=== PATIENT | female | born 1970 | race Caucasian/White ===

== ENCOUNTER 2019-01-20 09:34 | Outpatient (CLI) | payer OTHER, SELFPAY ==
[2019-01-20 13:20] LABS: Hemoglobin A1C 5.6 % (4.5-6.2)
== END 2019-01-20 09:54 ==
PROVIDERS: PCP Internal Medicine; Visit Provider Nurse Practitioner
DX: Z13.1 Encounter for screening for diabetes mellitus (principal)
CPT/HCPCS: 36415; 83036

== ENCOUNTER 2019-02-23 02:19 | Outpatient (CLI) | payer OTHER, SELFPAY ==
--- NOTE | 2019-02-23 10:10 | DI.MAMMO_ITS ---
EXAM: MG MAMMO SCREENING CLINICAL HISTORY: screening Z12.39 TECHNIQUE: Mammograms were interpreted according to the usual protocol including computer analysis w [employer] CAD system, tomosynthesis and C-view imaging. COMPARISON: No exams were available for comparison FINDINGS: The breasts are composed of scattered areas of fibroglandular density, breast density category B. Th ere are no suspicious masses or suspicious microcalcifications. There has been no significant interva l change when compared with the prior images. IMPRESSION: Category 1, negative mammogram. Yearly screening mammography is recommended. BI-RADS Cat 1 - Negative Breast Density - Category B - Scattered areas of fibroglandular density
== END 2019-02-23 02:39 ==
PROVIDERS: PCP Nurse Practitioner; Visit Provider Nurse Practitioner
DX: Z12.31 Encounter for screening mammogram for malignant neoplasm of breast (principal)
CPT/HCPCS: 77063; 77067

== ENCOUNTER 2021-02-15 03:33 | Outpatient (CLI) | payer BC, SELFPAY ==
[2021-02-15 10:13] LABS: Hemoglobin A1C 5.7 % (<5.7)
[2021-02-15 11:18] LABS: Calculated LDL 123 mg/dL (<100); Cholesterol 200 mg/dL (<200); HDL Cholesterol 60 mg/dL (40-60); Triglyceride 88 mg/dL (<150)
== END 2021-02-15 03:34 | disposition home or self-care (01) ==
LOC: LBO 03:33
PROVIDERS: PCP Nurse Practitioner; Visit Provider Nurse Practitioner
DX: Z00.00 Encounter for general adult medical examination without abnormal findings (principal)
CPT/HCPCS: 36415; 80061; 83036

== ENCOUNTER 2021-02-21 15:55 | Outpatient (REF) | payer BC, SELFPAY ==
--- NOTE | 2021-02-21 13:30 | PAPFT_PTH ---
PATIENT: Vania Palma LOC: [facility] U#:[id number] AGE/SX: 50/F ROOM: RE02/21/[address]: Monica Dumont, PhD [employer] : 1970 BED: DIS: 02/21/2021 SPEC #: [id number] RECD: 02/21/21 18:06 STATUS: RALPH REQ #: [id number] ARCHANA: 02/21/21 13:[address]: Monica Dumont DEPT: [facility] Cytology RECD BY: Deborah Fregoso Tissues: 1 - CX/ENDOCX FOR PAP SMEARS Procedures: PAP THIN PREP/UVM Screening HPV DNA PROBE Comments: [id number]
== END 2021-02-21 15:56 | disposition home or self-care (01) ==
LOC: LBN 15:55
PROVIDERS: PCP Nurse Practitioner; Visit Provider Nurse Practitioner
DX: Z12.4 Encounter for screening for malignant neoplasm of cervix (principal); Z11.51 Encounter for screening for human papillomavirus (HPV)
CPT/HCPCS: 88142; 87624

== ENCOUNTER → 2023-08-23 01:10 | Outpatient (CLI) | payer OTHER, SELFPAY ==
--- NOTE | 2023-08-23 12:17 | DI.MAMMO_ITS ---
Exam(s) MAMMO SCREENING EXAM: MAMMO SCREENING CLINICAL HISTORY: screening,Z12.39 TECHNIQUE: Mammograms were interpreted according to the usual protocol including computer analysis w [employer] CAD system, tomosynthesis and C-view imaging. COMPARISON: 2019 FINDINGS: The breasts are composed of scattered fibroglandular densities, Breast Density category B. No suspicious masses or suspicious microcalcifications are seen. No skin thickening or abnormal axillary lymph nodes are seen. There has been no significant change from prior exams. IMPRESSION: BI-RADS Category 1, Negative mammogram Yearly screening mammography is recommended. Breast Density - Category B, scattered fibroglandular densities. A negative radiographic report should not delay biopsy if a dominant or clinically suspicious mass is present. Up to ten percent of cancers are not identified on mammography. A negative report may reinforce clinical impression. Adenosis and dense breasts may obscure an underlying neoplasm. False positive reports average 6 to 10%. Patient will receive a letter notifying them of these results.
== END ==
PROVIDERS: PCP Nurse Practitioner Family; Visit Provider Family Medicine
DX: Z12.31 Encounter for screening mammogram for malignant neoplasm of breast (principal)
CPT/HCPCS: 77063; 77067

== ENCOUNTER 2023-10-02 06:59 | Day surgery (SDC) | payer OTHER, SELFPAY ==
[2023-10-02 07:05] VITALS: BP 138/82; PULSE 81; RESP 18; TEMP 36.4; O2SAT 99
[2023-10-02] MEDS: Lactated Ringers 1,000 ML 80 ML IV (07:28)
--- NOTE | 2023-10-02 08:24 | W.COLOREPORT ---
Date of service: 10/02/23 Time of Service: 08:24 Colonoscopy Report Procedure Description: PROCEDURES PERFORMED: 1. Colonoscopy with hot snare polypectomy 2 submucosal injection/tattoo. PREOPERATIVE DIAGNOSIS: Screening colonoscopy POSTOPERATIVE DIAGNOSIS: Unresectable colon polyp, pandiverticulosis SURGEON: Mariama Gregory MD INDICATION for procedure: The patient is a 52-year-old woman who is never had a screening colonoscopy. There is family history of colorectal polyps in her father. She has no symptoms. FINDINGS: In the ascending colon, a large, 3 cm plus very sessile and flat polyp was found. It may even be a tumor. It is not resectable as it encompasses at least one third of the colon wall. I performed submucosal injection/tattoo about 1 cm distal to the polyp edge. No other polyps were found. There are pandiverticular changes throughout the entire colon. SURVEILLANCE interval/FOLLOW-UP: Will need a right hemicolectomy for definitive management SPECIMENS: yes EBL: Minimal COMPLICATIONS: None QUALITY of prep: Excellent Procedure in detail: The patient gave written consent and was in agreement with the indications, the potential risks as well as the benefits of the procedure. They were taken to the endoscopy suite and laid in the left lateral decubitus position. A timeout was performed and anesthesia was administered which was tolerated well. I started the procedure. Digital rectal and visual examination was performed and grossly within normal limits. A well-lubricated flexible colonoscope was then introduced and passed without any notable difficulty all the way to the cecum identified by the ileocecal valve and the appendiceal orifice. The scope was then slowly withdrawn with the above-noted findings. The patient tolerated the procedure well and was taken to the PACU in hemodynamically stable condition.
--- NOTE | 2023-10-02 08:35 | ANES.PREOP_ITS ---
General Info Date of Service Date Performed: 10/02/23 Height: 5 ft 8 in Weight: 1089 kg Body Mass Index (BMI): 365.0 Surgical Procedure: Operation Date: 10/02/23 08:35 Proposed Procedure Side Surgeon p Colonoscopy John Gregory MD Actual Procedure Side Surgeon p Colonoscopy Not Applicable John Gregory MD Meds Allergies and Home Medications Allergies Allergy/AdvReac Type Severity Reaction Status Date / Time No Known Allergies Allergy Verified 10/02/23 07:21 Home Medication Medication Instructions Recorded lisinopril 10 mg tablet 10 mg PO DAILY #90 tabs 07/24/23 bisacodyl 5 mg tablet,delayed 5 mg PO ONCE #4 tabs 09/19/23 release (Dulcolax (bisacodyl)) polyethylene glycol 3350 17 17 g PO ONCE #238 grams 09/19/23 gram/dose oral powder Current Visit Medications: Current Medications Generic Name Dose Route Start Last Admin Trade Name Freq PRN Reason Stop Dose Admin Ringer's Solution 1,000 mls @ 80 mls/hr 10/02/23 06:00 10/02/23 07:28 IV 10/31/23 23:59 80 mls/hr INFUSION ROSALIE Administration IV Miscellaneous Supplies 1 each 10/02/23 06:00 Iv Access IV 10/31/23 23:59 DIRECTED ROSALIE Sodium Chloride 0 ml 10/02/23 06:00 Normal Saline Flush 10 Ml Syr IV 10/31/23 23:59 PRN PRN Sodium Chloride 0 ml 10/02/23 06:00 Normal Saline 10 Ml Vial IJ 10/31/23 23:59 DIRECTED PRN Sterile Water 0 ml 10/02/23 06:00 Water,Injection,Sterile 10 Ml Vial IJ 10/31/23 23:59 DIRECTED PRN PFSH Active Problems Active Problems: Problem Status Onset Code Encounter for annual physical exam Z00.00 Bilateral wrist pain M25.531, M25.532 Prediabetes R73.03 Obesity E66.9 Hypertension I10 Eczema of hand L30.9 Medical History Medical History Hx of skin cancer, basal cell Tobacco Smoking/Tobacco Use Status: Never Second hand exposure: Yes Alcohol Alcohol Intake: current Alcohol intake frequency: a few times a month Alcohol type: wine Substance Use Substance use: Never Substance use type: does not use Vital Signs and Lab Results Vital Signs Most Recent Vital Signs in EMR: Most Recent Vital Signs Temp Pulse Resp BP Pulse Ox 36.4 C L 81 18 138/82 99 10/02/23 07:05 10/02/23 07:05 10/02/23 07:05 10/02/23 07:05 10/02/23 07:05 Point of Care Results Point of Care Results: POC- Test(urine) Negative 10/02/23 07:26 Lab Results Blood Type / Crossmatch: No Data to Display Complete Blood Count: No Data to Display Complete Metabolic Panel: No Data to Display Liver Function Panel: 2 No Data to Display Coagulation Panel: No Data to Display Cardiac Panel: No Data to Display Arterial Blood Gas: No Data to Display Venous Blood Gas: No Data to Display Pancreas Panel: No Data to Display Thyroid Panel: No Data to Display Infectious Disease: No Data to Display Blood Cultures: No Data to Display Toxicology Panel: No Data to Display Panel: No Data to Display Anesthesia Assessment and Plan Anesthesia History Personal History: Unknown Anesthesia History Family History: No Family History of Anesthesia Complications Exercise Tolerance Exercise Tolerance: Metabolic Equivalents>4 Pertinent Negatives Pertinent Negatives: No Symptoms of GERD, No Major Cardiovascular Symptoms or Complaints and No Major Pulmonary Symptoms or Complaints Cardiac & Pulmonary Exam Cardiac Exam: Normal S1/S2 Heart Sounds Pulmonary Exam: Clear Bilateral Breath Sounds Implantable Cardiac Device Does patient have a Pacemaker or an ICD?: No Airway Exam Known Difficult Airway: No Mallampati Class: 2 Mouth Opening: Normal (> 3cm) Thyromental Distance: Greater than 3 cm Neck Range of Motion: Full ROM Neck Circumference: Thick Teeth Condition: Normal Dentition Airway Comments: TMJ ASA Classification ASA Score: ASA 2 Emergency Case?: No NPO Status NPO Status: NPO Clears >2 hours, Solids >8 hours Status Status: Negative HCG Anesthesia Plan Resuscitation Status: Full Code Anesthesia Technique: General Anesthesia Airway Planned: Natural Airway Monitors Used: Standard Monitors Preoperative Comments:: Weight to be corrected, 108.9kg
[2023-10-02 08:38] VITALS: BMI 365.0
--- NOTE | 2023-10-02 08:58 | BOWEL_PTH ---
PATIENT: Vania Palma LOC: [facility] U#:[id number] AGE/SX: 52/F ROOM: RE10/02/[address]: John Gregory : 1970 BED: DIS: 10/02/2023 SPEC #: [id number] RECD: 10/02/23 12:45 STATUS: RALPH RE #: [id number] ARCHANA: 10/02/23 08:[address]: John Gregory DEPT: Surgical Specimen RECD BY: Deborah Fregoso ENTERED: 10/02/23 12:46 SP TYPE: Bowel OTHR DR: Jacklyn Shore MD, DC Tissues: 1 - BIOPSY BOWEL Procedures: GROSS AND MICRO LEVEL 4 Comments: [id number]
[2023-10-02] MEDS: Endoscopic Tattoo 5 ML SYR IJ (09:04)
[2023-10-02 09:11] VITALS: BP 119/74; PULSE 68; RESP 18; TEMP 36; O2SAT 98
--- NOTE | 2023-10-02 09:16 | W.ANESPOSTOP ---
Postoperative Evaluation Date, Time and Location Date Performed: 10/02/23 Time Performed: 09:16 Patient Location: Day Surgery Unit Vital Signs Most Recent Imported Vital Signs: Most Recent Vital Signs Temp Pulse Resp BP Pulse Ox 36.0 C L 68 18 119/74 98 10/02/23 09:11 10/02/23 09:11 10/02/23 09:11 10/02/23 09:11 10/02/23 09:11 Pain Score Most Recent Pain Score: Most Recent Pain Score Pain Level 0 10/02/23 09:11 Assessment Mental Status: Arousable with meaningful communication Airway and Respiratory Function: Patent airway with normal (patient baseline) respiratory exam Cardiovascular Function: Hemodynamically Stable Hydration Status: Adequately Hydrated Nausea & Vomiting: No Nausea or Vomiting Pain: Pt. Denies Any Pain Peripheral Nerve Block: Patient did not receive a nerve block
--- NOTE | 2023-10-02 09:20 | W.PM.DSUDISC ---
Date of service: 10/02/23 Time of Service: 09:20 Discharge Plan Disposition Patient Disposition: Home Condition: Good Discharge Details Attending Provider: John Gregory Primary Care Provider: Jacklyn Shore Home Meds and New Rx's Prescriptions: No Action bisacodyl [Dulcolax (bisacodyl)] 5 mg tablet,delayed release (DR/EC) 5 mg PO ONCE Qty: 4 0RF Rx Instructions: Take per colonoscopy instructions provided by ordering providers office polyethylene glycol 3350 17 gram/dose powder 17 g PO ONCE Qty: 238 0RF Rx Instructions: Take per colonoscopy instructions provided by ordering providers office lisinopril 10 mg tablet 10 mg PO DAILY Qty: 90 3RF Discharge Instructions Additional Instructions: FINDINGS: A large polyp was found in your ascending colon. This may even be an early colon cancer. It is hard to know without removing it. It needs to be removed with the surgery called a right hemicolectomy. You need to follow-up in the office to discuss this further and plan for it. Activity:: Activity as Tolerated Diet:: As Tolerated
[2023-10-02 09:40] VITALS: BP 128/93; PULSE 57; RESP 17; TEMP 36; O2SAT 100
== END 2023-10-02 10:18 | disposition home or self-care (01) ==
PROVIDERS: PCP Family Medicine; Visit Provider Student in an Organized Health Care Education/Training Program
PROC: 0DJD8ZZ Inspection of Lower Intestinal Tract, Via Natural or Artificial Opening Endoscopic (ICD-10-PCS; CPT 45378; principal; 2023-10-02 08:30)
DX: Z12.11 Encounter for screening for malignant neoplasm of colon (principal); I10 Essential (primary) hypertension; Z80.0 Family history of malignant neoplasm of digestive organs; K57.90 Diverticulosis of intestine, part unspecified, without perforation or abscess without bleeding; D37.4 Neoplasm of uncertain behavior of colon
CPT/HCPCS: 45385; 45381; 00123; 81025; 88305; J2001; J2704

== ENCOUNTER 2023-10-15 09:19 | Outpatient (CLI) | payer OTHER, SELFPAY ==
[2023-10-15 12:27] LABS: ALT 28 U/L (14-59); AST 19 U/L (15-37); Albumin 3.7 g/dL (3.4-5.0); Alkaline Phosphatase 71 U/L (46-116); Anion Gap 9.7 mmol/L (3-11); BUN 12 mg/dL (7-18); Bilirubin, Total 0.44 mg/dL (0.2-1.0); CO2 27.3 mmol/L (21.0-32.0); CREATININE 0.9 mg/dL (0.55-1.02); Calcium 9.4 mg/dL (8.5-10.1); Calculated LDL 90 mg/dL (<100); Chloride 104 mmol/L (98-107); Cholesterol 163 mg/dL (<200); Estimated GFR 76.92 (mL/min/1.73m2); Glucose 102 mg/dL (74-106); HDL Cholesterol 57 mg/dL (40-60); Potassium 4.1 mmol/L (3.5-5.1); Sodium 141 mmol/L (136-145); Total Protein 7.2 g/dL (6.4-8.2); Triglyceride 84 mg/dL (<150)
== END 2023-10-15 09:20 | disposition home or self-care (01) ==
LOC: LOS 09:19
PROVIDERS: PCP Family Medicine; Visit Provider Family Medicine
DX: I10 Essential (primary) hypertension (principal); Z00.00 Encounter for general adult medical examination without abnormal findings; D12.6 Benign neoplasm of colon, unspecified
CPT/HCPCS: 36415; 80053; 80061

== ENCOUNTER 2023-10-16 12:56 | Outpatient (CLI) | payer OTHER, SELFPAY ==
[2023-10-16 14:16] LABS: Abs Immature Grans 0.02 10^3/uL (0.0-0.06); Absolute Basophil Count 0.05 10^3/uL (0.0-0.2); Absolute Eosinophil Count 0.11 10^3/uL (0.0-0.7); Absolute Lymphocyte Count 1.72 10^3/uL (1.2-3.4); Absolute Monocyte Count 0.56 10^3/uL (0.1-0.8); Absolute Neutrophil Count 5.65 10^3/uL (1.2-6.7); Basophils % 0.6 %; Eosinophils % 1.4 %; HCT 42.6 % (36.0-46.0); HGB 14.1 g/dL (11.2-15.7); Immature Grans % 0.2 %; Lymphocytes % 21.2 %; MCH 28.1 pg (27.0-33.0); MCHC 33.1 % (32.0-36.0); MCV 85 fL (80-95); MPV 11.9 fL (8.0-11.0); Monocytes % 6.9 %; Neutrophils % 69.7 %; Platelet Count 282 10^3/uL (130-400); RBC 5.02 10^6/uL (3.93-5.22); RDW 13.1 % (11.7-14.6); WBC 8.11 10^3/uL (4.4-10.8)
[2023-10-16 23:02] LABS: CEA 1.2 ng/mL (See Note)
== END 2023-10-16 12:57 | disposition home or self-care (01) ==
LOC: LBO 12:56
PROVIDERS: PCP Family Medicine; Visit Provider Family Medicine
DX: D12.6 Benign neoplasm of colon, unspecified (principal)
CPT/HCPCS: 36415; 82378; 85025

== ENCOUNTER 2024-03-17 12:00 | Day surgery (SDC) | payer OTHER, SELFPAY ==
[2024-03-17 12:12] VITALS: BP 139/86; PULSE 88; RESP 16; TEMP 36.4; O2SAT 100
[2024-03-17] MEDS: Celecoxib 200 MG CAP 400 MG PO (12:22)
[2024-03-17] MEDS: Acetaminophen 500 MG TAB 1000 MG PO (12:22)
[2024-03-17] MEDS: Cephalexin 500 MG CAP 1000 MG PO (12:25)
[2024-03-17] MEDS: Sodium Bicarbonate 50 MEQ/50 ML VIAL (13:53)
[2024-03-17] MEDS: Lidocaine 1% Pres-Free W/EPI 1/200,000 10 ML VIAL (13:53)
--- NOTE | 2024-03-17 14:02 | ROE_ITS ---
Operative Note Operative Note PRE-OP DIAGNOSIS: Left Carpal Tunnel Syndrome POST-OP DIAGNOSIS: same PROCEDURE: Left Endoscopic Carpal Tunnel Release SURGEON: Rocky Howard ANESTHESIA TYPE: Local By Surgeon Refer to Anesthesia Record ESTIMATED BLOOD LOSS: 0 PATHOLOGY: none sent TOURNIQUET TIME: 5 COMPLICATIONS: None Patient was transported to: same day Patient's condition: stable Indications: I have seen Vania in clinic for symptoms of carpal tunnel syndrome. The numbness, tingling, and pain limited function. Clinical exam findings confirmed the diagnosis of carpal tunnel syndrome. Nonoperative measures such as bracing, time, activity modifications had been tried but disability and pain persisted. I discussed carpal tunnel release with the patient. I reviewed the risks of the procedure to include, but not limited to, bleeding, infection, pain, stiffness, incomplete release, damage to nerves or vessels, persistent numbness, recurrence. Despite these risks, the patient elected to proceed. Findings: There was tightened carpal tunnel and a prominent palmaris brevis. The carpal tunnel was dilated and released successfully with the endoscopic with increased space within the tunnel. The antebrachial fascia was released proximally freeing the median nerve at the wrist. Procedure Description: Vania was greeted in the preoperative holding area where the correct side was identified and marked. The consent was reviewed with the patient and signed. The history and physical was updated. All questions were answered. She was taken back to the operating room. The patient was placed into the supine position on the operating room table with the left arm on an arm board. A nonsterile tourniquet was placed high onto the arm. All bony prominences were well padded. Prophylactic antibiotics in the form of Cefazolin were administered. The left arm was then prepped with Chloraprep and draped in a standard fashion with stockinette and extremity drape. A timeout to confirm correct identity, side and site, procedure, allergies, anesthesia, and medical concerns was performed. The surgical site was marked in the volar wrist creases in line with the radial border of the fourth ray. This area was anesthetized with approximately 1% Lidocaine with epinephrine, buffered with sodium bicarbonate. This local anesthetic was also administered within the carpal tunnel and superficial to the transverse carpal ligament in addition to the volar forearm proximal to the inci dru site. The limb was then exsanguinated with an Esmarch. The skin was incised with a 15 blade, approximately 1cm. The skin only was cut and the deeper tissue was dissected bluntly with a tenotomy scissor, avoiding passing nerve and venous structures. There was muscle belly encountered which appeared to be prominent palmaris brevis. This was dissected away. The fascia was penetrated and opened bluntly. A two-prong skin hook was placed under this proximal fascial edge. A series of hamate finders were used to identify and dilate the carpal tunnel. Synovial elevator was used to free synovial attachments to the underside of the transverse carpal ligament. My thumb was kept in the palm to prudence the distal extent of the carpal tunnel and correctly position the hand. The Microaire endoscope was inserted without difficulty and without resistance. Excellent visualization showed horizontally running fibers of the transverse carpal ligament (TCL). The distal extent of the TCL was vi sualized and the end of the scope palpated with the thumb. The blade was elevated and withdrawn from distal to proximal. The TCL was split into two flaps. The endoscope was reinserted to confirm complete release and any remnant ligament was incised. The scope was withdrawn and the proximal aspect of the carpal tunnel was grossly inspected and appeared release with the median nerve visible. The antebrachial fascia at the level of the wrist was then freed from the overlying skin and then the underlying median nerve with blunt dissection. This was transected longitudinally for about 3cm proximal to the wrist incision. The wound was then irrigated with easy flow of irrigant distally and proximally. The incision was closed with a single 4-0 Nylon suture. The wound was dressed with Xeroform, Gauze, Kerlix and Carlos. The tourniquet was deflated with the initial dressing and held with some pressure. Blood flow returned easily to all digits with capillary refill less than 2 seconds. The patient tolerated the procedure well and was returned to the Same Day Surgery area in a stable condition suffering no known complication. Date of Procedure: 03/17/24
--- NOTE | 2024-03-17 14:04 | W.PM.DSUDISC ---
Date of service: 03/17/24 Discharge Plan Disposition Patient Disposition: Home Condition: Good Discharge Details Reason For Visit: Left carpal tunnel syndrome Attending Provider: Rocky Howard Primary Care Provider: Jacklyn Shore Home Meds and New Rx's Prescriptions: New acetaminophen 500 mg tablet 500 mg PO Q6H PRN (Reason: pain) Qty: 60 2RF hydrocodone-acetaminophen 5-325 mg tablet 1 tab PO Q6H PRN (Reason: severe pain) Qty: 4 0RF Rx Instructions: Take one tablet up to every 6 hours as needed for severe postoperative pain ibuprofen 600 mg tablet 600 mg PO TID PRN (Reason: pain) Qty: 60 0RF Discharge Instructions Stand Alone Forms: Anita Pablo Tunnel Release Activity:: Elevate Remove Dressings/Wound Care:: 48 hours Shower/Bathe:: 48 hours Diet:: As Tolerated Discharge Orders Discharge Orders: Discharge Order (Routine); Ordered 03/17/24 Ordered By: Mindy Vu
[2024-03-17 14:06] VITALS: BP 130/88; PULSE 73; RESP 18; TEMP 36.1; O2SAT 98
== END 2024-03-17 14:16 | disposition home or self-care (01) ==
PROVIDERS: PCP Family Medicine; Visit Provider Student in an Organized Health Care Education/Training Program
PROC: 01N54ZZ Release Median Nerve, Percutaneous Endoscopic Approach (ICD-10-PCS; CPT 29848; principal; 2024-03-17 14:45)
DX: G56.02 Carpal tunnel syndrome, left upper limb (principal)
CPT/HCPCS: 29848; J2004

== ENCOUNTER 2024-03-26 06:17 | Day surgery (SDC) | payer OTHER, SELFPAY ==
[2024-03-26 06:26] VITALS: BP 137/72; PULSE 80; RESP 16; TEMP 36.6; O2SAT 100
[2024-03-26] MEDS: Celecoxib 200 MG CAP 400 MG PO (06:39)
[2024-03-26] MEDS: Acetaminophen 500 MG TAB 1000 MG PO (06:39)
[2024-03-26] MEDS: Cephalexin 500 MG CAP 1000 MG PO (06:40)
--- NOTE | 2024-03-26 07:09 | W.PM.DSUDISC ---
Date of service: 03/26/24 Discharge Plan Disposition Patient Disposition: Home Condition: Good Discharge Details Reason For Visit: R ECTR Attending Provider: Rocky Howard Primary Care Provider: Jacklyn Shore Home Meds and New Rx's Prescriptions: New hydrocodone-acetaminophen 5-325 mg tablet 1 tab PO Q6H PRN (Reason: pain) Qty: 4 0RF Discontinued acetaminophen 500 mg tablet 500 mg PO Q6H PRN (Reason: pain) Qty: 60 2RF hydrocodone-acetaminophen 5-325 mg tablet 1 tab PO Q6H PRN (Reason: severe pain) Qty: 4 0RF Rx Instructions: Take one tablet up to every 6 hours as needed for severe postoperative pain ibuprofen 600 mg tablet 600 mg PO TID PRN (Reason: pain) Qty: 60 0RF Discharge Instructions Stand Alone Forms: Anita Pablo Tunnel Malachi, Miguel Hook (DSU) Activity:: Activity as Tolerated Remove Dressings/Wound Care:: 48 hours Shower/Bathe:: 48 hours Diet:: As Tolerated Discharge Orders Discharge Orders: Discharge Order (Routine); Ordered 03/26/24 Ordered By: Ruddy Hicks DS: Diagnosis Discharge Diagnosis (1) Bilateral carpal tunnel syndrome: Status: Acute
[2024-03-26] MEDS: Lidocaine 1% Multi-Dose W/EPI 1/100,000 50 ML VIAL (07:33)
[2024-03-26] MEDS: Sodium Bicarbonate 50 MEQ/50 ML VIAL (07:33)
[2024-03-26 07:57] VITALS: BP 126/88; PULSE 70; RESP 16; TEMP 36.1; O2SAT 100
--- NOTE | 2024-03-26 08:04 | W.PM.OP ---
Operative Note Operative Note PRE-OP DIAGNOSIS: Right Carpal Tunnel Syndrome POST-OP DIAGNOSIS: same PROCEDURE: Right Endoscopic Carpal Tunnel Release SURGEON: Rocky Howard ANESTHESIA TYPE: Local By Surgeon Refer to Anesthesia Record ESTIMATED BLOOD LOSS: 0 PATHOLOGY: none sent TOURNIQUET TIME: 10 COMPLICATIONS: None Patient was transported to: same day Patient's condition: stable Indications: I have seen Vania in clinic for symptoms of carpal tunnel syndrome. The numbness, tingling, and pain limited function. Clinical exam findings [with nerve conduction tests ]confirmed the diagnosis of carpal tunnel syndrome. Nonoperative measures such as bracing, time, activity modifications had been tried but disability and pain persisted. I discussed carpal tunnel release with the patient. I reviewed the risks of the procedure to include, but not limited to, bleeding, infection, pain, stiffness, incomplete release, damage to nerves or vessels, persistent numbness, recurrence. Despite these risks, the patient elected to proceed. Findings: There was a quite large pulmonary's brevis which obstructed the view of the volar fascia and the entrance into the carpal tunnel. These fibers were dissected which allowed entrance into the carpal tunnel. There was tightened carpal tunnel. This was dilated and released successfully with the endoscopic with increased space within the tunnel. Procedure Description: Vania was greeted in the preoperative holding area where the correct side was identified and marked. The consent was reviewed with the patient and signed. The history and physical was updated. All questions were answered. She was taken back to the operating room. The patient was placed into the supine position on the operating room table with the right arm on an arm board. A nonsterile tourniquet was placed high onto the arm. All bony prominences were well padded. Prophylactic antibiotics in the form of cephalexin were administered. The right arm was then prepped with Chloraprep and draped in a standard fashion with stockinette and extremity drape. A timeout to confirm correct identity, side and site, procedure, allergies, anesthesia, and medical concerns was performed. The surgical site was marked in the volar wrist creases in line with the radial border of the fourth ray. This area was anesthetized with approximately 1% Lidocaine with epinephrine, buffered with sodium bicarbonate. Once the anesthetic had set up, the limb was then exsanguinated with an Esmarch. The skin was incised with a 15 blade, approximately 1cm. The skin only was cut and the deeper tissue was dissected bluntly with a tenotomy scissor, avoiding passing nerve and venous structures. There was a thin fascial layer overlying a significant sized muscle belly, likely Mccall's brevis. The fascia was penetrated and opened bluntly. The muscle belly was quite large and obstructing the view of the deeper structures. It was dissected in line with its fibers and then retracted out of the way to allow entrance into the carpal tunnel. Then, a two-prong skin hook was placed under this proximal fascial edge. A series of hamate finders were used to identify and dilate the carpal tunnel. Synovial elevator was used to free synovial attachments to the underside of the transverse carpal ligament. My thumb was kept in the palm to prudence the distal extent of the carpal tunnel and correctly position the hand. The Microaire endoscope was inserted without difficulty and without resistance. Excellent visualization showed horizontally running fibers of the transverse carpal ligament (TCL). The distal extent of the TCL was visualized and the end of the scope palpated with the thumb. The blade was elevated and withdrawn from distal to proximal. The TCL was split into two flaps. The endoscope was reinserted to confirm complete release and any remnant ligament was incised. The scope was withdrawn and the proximal aspect of the carpal tunnel was grossly inspected which showed appropriate separation. The wound was then irrigated with easy flow of irrigant distally and proximally. The incision was closed with a single 4-0 Nylon suture. The wound was dressed with Xeroform, Gauze, Kerlix and Carlos. The tourniquet was deflated with the initial dressing and held with some pressure. Blood flow returned easily to all digits with capillary refill less than 2 seconds. The suture from the left hand was then removed. The patient tolerated the procedure well and was returned to the Same Day Surgery area in a stable condition suffering no known complication. Date of Procedure: 03/26/24
== END 2024-03-26 08:11 | disposition home or self-care (01) ==
PROVIDERS: PCP Family Medicine; Visit Provider Student in an Organized Health Care Education/Training Program
PROC: 01N54ZZ Release Median Nerve, Percutaneous Endoscopic Approach (ICD-10-PCS; CPT 29848; principal; 2024-03-26 07:30)
DX: G56.01 Carpal tunnel syndrome, right upper limb (principal); G56.03 Carpal tunnel syndrome, bilateral upper limbs
CPT/HCPCS: 29848; J2004

== ENCOUNTER 2024-04-27 19:35 | Outpatient (REF) | payer OTHER, SELFPAY ==
--- NOTE | 2024-04-27 11:30 | PAPFT_PTH ---
PATIENT: Vania Palma LOC: [facility] U#:[id number] AGE/SX: 53/F ROOM: RE04/27/[address]: Jacklyn Shore MD, DC : 1970 BED: DIS: 04/27/2024 SPEC #: [id number] RECD: 04/28/24 12:52 STATUS: RALPH REQ #: [id number] ARCHANA: 04/27/24 11:[address]: Jacklyn Shore DEPT: [facility] Cytology RECD BY: Deborah Fregoso Tissues: 1 - CX/ENDOCX FOR PAP SMEARS Procedures: PAP THIN PREP/UVM Screening HPV DNA PROBE Comments: [id number] (HPV 16 & 18/45)
--- OUTSIDE RECORDS SUMMARY | 2024-04-27 19:48 | XMS_ITS | Clinical Summary ---
Author Organization [facility] Address [facility] [place] [address] Care Team Providers Care Marketing Programs Specialist Name Role Phone Monica Dumont APRN Primary Care Provider [phone] [phone] Allergies Active Allergy Reactions Criticality Noted Date Comments Benzoyl Peroxide CIS - Hives Sulfa (Sulfonamide Antibiotics) Low Medications Medication Sig Dispensed Refills Start Date End Date Status augmented betamethasone dipropionate (DIPROLENE-AF) 0.05 % OintmentIndications:H and dermatitis Apply to affected areas on the hands twice daily for 21 days, then take 1 week off. Repeat the cycle as needed. 50 g 2 08/04/2019 Active Additional Information Patient not taking.Reported on 08/10/2020 Social History Tobacco Use Types Packs/Day Years Used Date Smoking Tobacco: Never Assessed Sex and Gender Information Value Date Recorded Sex Assigned at Not on file Gender Identity Not on file Sexual Orientation Not on file Last Filed Vital Signs Vital Sign Reading Time Taken Comments Blood Pressure 151/98 08/10/2020 9:47 AM EDT Pulse 79 08/10/2020 9:47 AM EDT Temperature - - Respiratory Rate - - Oxygen Saturation - - Inhaled Oxygen Concentration - - Weight - - Height - - Body Mass Index - - Plan of Treatment Health Maintenance Due Date Last Done Comments CT Colonography 1970 Colonoscopy 1970 Colorectal Cancer Screening 1970 FIT DNA 1970 FIT 1970 Sigmoidoscopy (10 year) with FIT yearly 1970 Sigmoidoscopy 1970 HIV screen 1988 Hepatitis C Screening 1988 Hepatitis B vaccine (0-59 yrs) (1) 1989 Tetanus/Diphtheria/Pertussis Vaccines (1 - Tdap) 12/01 HPV test 2000 PAP Smear 2000 Breast Cancer Share Decision Needed 2010 Breast Cancer screening 2010 Pneumoccocal Vaccine: 50+ (1 of 1 - PCV) 2020 Zoster vaccine (1 of 2) 2020 Covid-19 Vaccine (1 - 2023- season) 2023 Influenza (Flu) vaccine (1 o f 1 - Influenza standard series) 2023 Care Teams Marketing Programs Specialist Relationship Specialty Start Date End Date Monica Dumont APRN PCP - General Family Medicine 01/21/19
--- OUTSIDE RECORDS SUMMARY | 2024-04-27 19:48 | XMS_ITS | Encounter Summary ---
Author Organization [facility] [place] [address] Care Team Providers Care Mold Capper Helper Name Role Phone Monica Dumont CHUCHO Primary Care Provider [phone] Reason for Visit * Reason Onset Date Comments Pre Procedure Call 06/30/2019 Encounter Details Date Type Department Care Team (Late st Contact Info) Description 06/30/2019 Telephone Dermatology at [facility] [address] [place] [address] Rosy Basurto CYBERATHLETE Pre Procedure Call Social History Tobacco Use Types Packs/Day Years Used Date Smoking Tobacco: Never Assessed Sex and Gender Information Value Date Recorded Sex Assigned at Not on file Gender Identity Not on file Sexual Orientation Not on file documented as of this encounter Miscellaneous Notes * Telephone Encounter - Rosy Basurto RN - 06/30/2019 11:06 AM EDT In complying with current policy surrounding the declared COVID-19 pandemic, the decision was made based on pathology, clinical features and characteristics of given tumor type to postpone removalof the biopsy proven basal cell carcinoma located on the left upper cutaneous lip. Patient will be contacted to reschedule as soon as circumstances allow. This decision was discussed with the patientand they are in agreement with the plan. They have been provided a contact telephone number should additional questions or concerns arise. 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 * Telephone Encounter - Rosy Basurto RN - 06/30/2019 10:55 AM EDT Mohs consultation and preoperative note (H&P) Patient Name: Vania Palma Age: 48 y.o. Date of : 1970 Today's Date: 06/30/2019 REFERRING PROVIDER: No ref. provider found CC: Mohs micrographic surgery for treatment of a cutaneous tumor HPI: Vania Palma is a 48 y.o. female presenting for biopsy-proven basal cell carcinoma location onthe left upper cutaneous lip. The dermatologic preoperative information sheet was reviewed with pertinent positive and negative as below. DERMATOLOGIC PRE-OPERATIVE EVALUATION AND REVIEW OF SYSTEMS History of Mohs surgery? no Pacemaker/Defibrillator? no Joint replacement or other implantable devices (e.g. Cochlear implant)? If yes then when? no Do you take a blood thinner? No History of organ transplant? no History of artificial valve or stroke? no History of liver disease or bleeding disorder? no Do you have any medical problems that may affect your upcoming surgery? no Do you have any concerns regarding your upcoming surgery? no We ask patients to discontinue Fish oil/Multivitamin/Vit E/?? supplements and natural medicines not prescribed by a physician 1 week prior to surgery. SOCIAL HISTORY: Makes Own Decisions Yes Hearing aid or other devices: No Relevant travel history or future plans: na Tobacco use (amount per day, type of tobacco): no Do you have any physical limitations that may affect your surgery?: no ALLERGIES: Allergies reviewed MEDICATIONS: Medications reviewed documented in this encounter Plan of Treatment Not on file documented as of this encounter Visit Diagnoses Not on filedocumented in this encounter Care Teams Mold Capper Helper Relationship Specialty Start Date End Date Monica uDmont APRN PCP - General Family Medicine 01/21/19 documented as of this encounter
--- OUTSIDE RECORDS SUMMARY | 2024-04-27 19:48 | XMS_ITS | Encounter Summary ---
Author Organization [facility] Address [facility] [place] [address] Care Team Providers Care Tomb Maker Helper Name Role Phone Monica Dumont CHUCHO Primary Care Provider [phone] Reason for Visit * Reason Comments Basal Cell Carcinoma Encounter Details Date Type Department Care Team (Latest Contact Info) Description 08/10/2020 9:45 AM EDT Clinical Support Dermatology at [facility] [address] [place] [address] Rocky Gómez MD [facility] [place] [address] Basal cell carcinoma of skin of left upper lip Social History Tobacco Use Types Packs/Day Years Used Date Smoking Tobacco: Never Assessed Sex and Gender Information Value Date Recorded Sex Assigned at Not on file Gender Identity Not on file Sexual Orientation Not on file documented as of this encounter Progress Notes * Umm Gonzalez RN - 08/10/2020 9:45 AM EDT Mohs consultation and preoperative note (H&P) Patient Name: Vania Palma Age: 49 y.o. Date of : 1970 Today's Date: 08/10/2020 REFERRING PROVIDER: Jg Adame MD CC: Mohs micrographic surgery for treatment of a cutaneous tumor HPI: Vania Palma is a 49 y.o. female presenting for biopsy-proven basal cell [...] No Relevant travel history or future plans: no Tobacco use (amount per day, type of tobacco): no Do you have any physical limitations that may affect your surgery?: no ALLERGIES: Allergies reviewed MEDICATIONS: Medications reviewed documented in this encounter Plan of Treatment Not on file documented as of this encounter Visit Diagnoses Diagnosis Basal cell carcinoma of skin of left upper lip Basal cell carcinoma of skin of lip documented in this encounter Care Teams Tomb Maker Helper Relationship Specialty Start Date End Date Monica Dumont APRN PCP - General Family Medicine 01/21/19 documented as of this encounter
--- OUTSIDE RECORDS SUMMARY | 2024-04-27 19:48 | XMS_ITS | Encounter Summary ---
Author Organization [facility] Address [facility] [place] [address] Care Team Providers Care School Psychologist Name Role Phone Monica Dumont APRN Primary Care Provider [phone] Reason for Visit * Reason Onset Date Comments Medication Refill 08/03/2019 Encounter Details Date Type Department Care Team (Late st Contact Info) Description 08/03/2019 Refill Dermatology at [facility] [address] [place] [address] Call, Jg Mota MD [facility] [place] [address] Hand dermatitis Social History Tobacco Use Types Packs/Day Years Used Date Smoking Tobacco: Never Assessed Sex and Gender Information Value Date Recorded Sex Assigned at Not on file Gender Identity Not on file Sexual Orientation Not on file documented as of this encounter Plan of Treatment Not on file documented as of this encounter Visit Diagnoses Diagnosis Hand dermatitis Contact dermatitis and other eczema, due to unspecified cause documented in this encounter Care Teams School Psychologist Relationship Specialty Start Date End Date Monica Dumont APRN PCP - General Family Medicine 01/21/19 documented as of this encounter
--- OUTSIDE RECORDS SUMMARY | 2024-04-27 19:48 | XMS_ITS | Encounter Summary ---
[place] [address] Care Team Providers Care Refuge Worker Name Role Phone Monica Dumont APRN Primary Care Provider [phone] Reason for Visit * Reason Onset Date Comments Pre Procedure Call 08/03/2020 Encounter Details Date Type Department Care Team (Late st Contact Info) Description 08/03/[address] [facility] [address] [place] [address] Sue Rabago CMA Pre Procedure Call Social History Tobacco Use Types Packs/Day Years Used Date Smoking Tobacco: Never Assessed Sex and Gender Information Value Date Recorded Sex Assigned at Not on file Gender Identity Not on file Sexual Orientation Not on file documented as of this encounter Miscellaneous Notes * Telephone Encounter - Sue Rabago CMA - 08/03/2020 9:32 AM EDT Unable to reach patient to update Mohs pre-op survey. Message was left on answering machine to return call. Patient is scheduled for Mohs surgery on 08/10/2020. documented in this encounter Plan of Treatment Not on file documented as of this encounter Visit Diagnoses Not on filedocumented in this encounter Care Teams Refuge Worker Relationship Specialty Start Date End Date Monica Dumont APRN PCP - General Family Medicine 01/21/19 documented as of this encounter
--- OUTSIDE RECORDS SUMMARY | 2024-04-27 19:48 | XMS_ITS | Encounter Summary ---
Author Organization [facility] Address [facility] [place] [address] Care Team Providers Care Orchestra Musician Name Role Phone KevinBill العراقيMonica Randi RANKIN Primary Care Provider [phone] [phone] Encounter Details Date Type Department Care Team (Late st Contact Info) Description 04/27/2019 Telephone Dermatology at [facility] [address] [place] [id number] Call, Jg Mota MD [facility] [address] [place] [address] Social History Tobacco Use Types Packs/Day Years Used Date Smoking Tobacco: Never Assessed Sex and Gender Information Value Date Recorded Sex Assigned at Not on file Gender Identity Not on file Sexual Orientation Not on file documented as of this encounter Miscellaneous Notes * Telephone Encounter - Jg Adame - 04/27/2019 7:25 PM EST Called patient to discuss the following biopsy results: DIAGNOSIS Skin, left upper cutaneous lip, shave biopsy: - Basal cell carcinoma, nodular and infiltrative (micronodular) type, present at the peripheral and deep specimen edges We reviewed the etiology of the diagnosis with joint decision to treat with mohs. Instructed patient that he will be contacted by physician office secretary for further scheduling. Otherwise, patient states that the biopsy site is healing well. Instructed to continue with follow up in 6 months for FBSE and to call with any questions or concerns. documented in this encounter Plan of Treatment Not on file documented as of this encounter Visit Diagnoses Not on filedocumented in this encounter Care Teams Orchestra Musician Relationship Specialty Start Date End Date Monica Dumont, CHUCHO PCP - General Family Medicine 01/21/19 documented as of this encounter
--- OUTSIDE RECORDS SUMMARY | 2024-04-27 19:48 | XMS_ITS | Encounter Summary ---
Author Organization [facility] Address [facility] [place] [address] Care Team Providers Care Dental Sales Representative Name Role Phone KevinMonica العراقي Randi RANKIN Primary Care Provider [phone] [phone] Reason for Visit * Reason Comments Suture / Staple Removal Encounter Details Date Type Department Care Team (Latest Contact Info) Description 08/17/2020 2:15 PM EDT Clinical Support Dermatology at [address] [place] [address] Rocky Gómez MD [facility] [address] [place] [address] Visit for suture removal Social History Tobacco Use Types Packs/Day Years Used Date Smoking Tobacco: Never Assessed Sex and Gender Information Value Date Recorded Sex Assigned at Not on file Gender Identity Not on file Sexual Orientation Not on file documented as of this encounter Progress Notes * Umm Gonzalez RN - 08/17/2020 2:15 PM EDT Images from the original note were not included. Patient: Vania Palma Date of . 1970 Today's Date: 08/17/2020 Vania Palma is a 49 y.o. female here for suture removal, 14 days post op. Doing well. Denies concerns. Overall very pleased with surgical outcome. Photograph: Plan: 1. Sutures removed today without complication. 2. Follow up with Dr. Sanders in 2-3 months. Patient reminded to follow up with general dermatologyfor a full skin examination in the near future. 3. Patient reminded to call with any questions/ concerns. Umm Gonzalez, RN documented in this encounter Plan of Treatment Not on file documented as of this encounter Visit Diagnoses Diagnosis Visit for suture removal Encounter for removal of sutures documented in this encounter Care Teams Dental Sales Representative Relationship Specialty Start Date End Date Monica Dumont, CHUCHO PCP - General Family Medicine 01/21/19 documented as of this encounter
--- OUTSIDE RECORDS SUMMARY | 2024-04-27 19:48 | XMS_ITS | Encounter Summary ---
Author Organization [facility] Address [facility] [place] [address] Care Team Providers Care Insurance Premium Auditor Name Role Phone Monica Duomnt APRN Primary Care Provider [phone] [phone] Encounter Details Date Type Department Care Team (Late st Contact Info) Description 04/24/2019 Telephone Dermatology at [facility] [address] [place] [phone] Call, Jg Mota MD [facility] [address] [address] Social History Tobacco Use Types Packs/Day Years Used Date Smoking Tobacco: Never Assessed Sex and Gender Information Value Date Recorded Sex Assigned at Not on file Gender Identity Not on file Sexual Orientation Not on file documented as of this encounter Miscellaneous Notes * Telephone Encounter - Jg Adame - 04/24/2019 11:06 AM EST Called patient to discuss the following biopsy results: ?? DIAGNOSIS Skin, left upper cutaneous lip, shave biopsy: - Basal cell carcinoma, nodular and infiltrative (micronodular) type, present at the peripheral and deep specimen edges ?? No answer, left detailed VM regarding the biopsy results per permission received from previous documentation. Recommend mohs surgery, will forward to secretary to board of commissioners to call. Will plan to see patient back in 3 months for FBSE documented in this encounter Plan of Treatment Not on file documented as of this encounter Visit Diagnoses Not on filedocumented in this encounter Care Teams Insurance Premium Auditor Relationship Specialty Start Date End Date Monica Dumont CHUCHO PCP - General Family Medicine 01/21/19 documented as of this encounter
--- OUTSIDE RECORDS SUMMARY | 2024-04-27 19:48 | XMS_ITS | Encounter Summary ---
Author Organization [facility] Address [facility] [place] [address] Care Team Providers Care Campaign Management Senior Manager Name Role Phone KevinMonica العراقي Randi RANKIN Primary Care Provider [phone] Reason for Visit * Reason Comments Basal Cell Carcinoma Encounter Details Date Type Department Care Team (Latest Contact Info) Description 08/10/2020 10:00 AM EDT [facility] [address] [place] [address] Rocky Gómez MD [facility] [address] [address] Basal cell carcinoma of skin of left upper lip; Prophylactic antibiotic Social History Tobacco Use Types Packs/Day Years Used Date Smoking Tobacco: Never Assessed Sex and Gender Information Value Date Recorded Sex Assigned at Not on file Gender Identity Not on file Sexual Orientation Not on file documented as of this encounter Last Filed Vital Signs Vital Sign Reading Time Taken Comments Blood Pressure 151/98 08/10/2020 9:47 AM EDT Pulse 79 08/10/2020 9:47 AM EDT Temperature - - Respiratory Rate - - Oxygen Saturation - - Inhaled Oxygen Concentration - - Weight - - Height - - Body Mass Index - - documented in this encounter Patient Instructions * Patient Instructions* Umm Gonzalez RN - 08/10/2020 10:00 AM EDT Your staff Mohs surgeon today was Rocky Gómez MD, PhD. FLAP CLOSURE Your wound(s) was repaired by a flap closure. A flap closure is rearrangement of skin tissue. A flap is performed when the area has too much tension, or when a simple side to side closure cannot be performed, or when a flap would lead to better cosmetic outcome with a flap. Your flap may be closed with all absorbable sutures, sutures that need to be removed or a combination of both. You will be instructed upon discharge if a suture removal appointment is necessary. Caring for a flap is very similar to caring for regular side to side stitches, except more caution should be used when cleaning the incisions as some flaps can be delicate. Instructions for wound care are below. Please keep in mind these are general guidelines. When in doubt, or if you have more specific questions, please call us. Keep below as a reference while caring for your wound(s): Wound Care ??? Gently remove your initial bandage (after 48 hours from surgery). It is normal to have swellingand bruising. ??? Begin wound care as below. ??? If your initial bandage only stayed on for 24 hours (for example, falls off sooner), this is okay. Resume your wound care and bandaging instructions as below. ??? Change your bandage once a day (and whenever it becomes wet or soaks through) continue for 7 days. ??? For bandage changes: o Wash hands with soap and water, or use gloves that you can purchase at a local pharmacy or drug store. o Clean the surgical area with cotton-tipped swabs or soft gauze dipped in soapy water (recommend liquid soap in clean room temperature water). Roll the cotton swab over the incision with soapy water, then with plain water, and then gently pat dry. Do not scrub the area with a washcloth. Do not putdirect shower water pressure onto your wound. Do not pick off any scabs. It is okay to allow soapy w ater to run over your wound in the shower, however. o If you cannot remove any bloody or crusted areas, you may soak the area with wet gauze first for 15 to 20 minutes to help soften it o Pat the area dry with clean gauze or cotton swabs. Do not rub. o Use a cotton swab to apply a generous layer of petrolatum over the incision lines and any open-wound areas. o Make sure your tube or jar of petrolatum is new or unused to prevent prior contamination from entering your wound. Avoid double dipping. o After applying petrolatum, use a clean nonstick gauze or other nonstick dressing, such as Telfa. This may be purchased over the counter at a drug store. Do not use regular gauze as it will stick toyour wound and can peel off healing skin with bandage changes. o Secure the bandage with paper tape or a bandage. Band-aids are okay, but typically have more adhesive that can irritate the skin compared to paper tape. This can be purchased at a drug store. o Continue this wound care daily for 7 days. If any areas of the flap were left open to heal, continue to apply Vaseline until healed. o Keep in mind that if you do not want to use a bandage at all due to difficulty, irritation of skin, cost, or inconvenience --- you can certainly avoid bandages altogether. However, it is imperativethat you continue with topical petrolatum (plain, fragrance-free). This may need to be applied several times daily if it gets wiped off, washed off, or dries out. Things to purchase for wound care: -Nonstick gauze -A tube or tub of petrolatum jelly (fragrance-free, no dye, not lotion) -paper tape -cotton swabs -gloves (optional) -Dial or other antibacterial liquid soap After Surgery 1. Avoid tobacco, smoking/vapors, and cannabis (marijuana) for at least 3 weeks after your surgery.Smoking impairs healing and leads to worse scarring. Even cutting back on tobacco is helpful if youcannot abstain completely. 2. Limit alcohol intake to one drink per day over the next 3 days. 3. Do not participate in athletic activities for 5-7 days. Athletic activity is a relative term, but this is considered to be anything that could potentially raise your heartrate or blood pressure. Elevating your heart rate and blood pressure can increase risks of swelling, bleeding, wound opening,or lead to worse scarring. Walking at a leisurely pace is fine for most people, but not if you are going walking for the purpose of exercise. 4. Do not lift anything heavier than 10 pounds until your sutures are removed. 5. Some producer assistant may need to be delayed or delegated such as vacuuming, mowing the lawn, snow shoveling, or caring for young children that need to be carried/lifted. Working any major muscle groups increases your heart rate and can increasing bleeding. 6. Avoid swimming, hot tubs, and direct water pressure for 3 weeks after surgery. You may shower once your initial bandage comes off in 48 hours, however. 7. Avoid antibiotic ointments such as triple antibiotic creams. Stick with your wound care instructions, please. 8. Whenever possible, it is helpful to take photographs with your camera or cell phone of any problems or concerns you see with your wound. We often ask for photos when you call with questions. 9. Starting 2 months following surgery, you can begin firm massage to any areas of firm scar along your incision to soften the scar and reduce bumpiness. Do this 3 times per day, 3 minutes each time.Do not start massage before 2 months. 10. Your wound will appear completely healed soon after sutures are removed (about 1 week), but incisions can remain bright red for several weeks. Then the scarring and healing process continues under the skin for 6 months up to 2 years. The scar may become less red, less firm, and more subtle during this time but the rate of improvement varies depending on the person. Most redness, discoloration, bumpiness resolves by 6 months. 11. Keep your follow-up appointments and make sure to continue to have your skin checked, as often as is recommended by your lead embedded software engineer, for new skin cancers. This is once per year for most patients. 12. Your can expect your scar to be red for several weeks with gradual fading of the redness. The scar will also be raised and lumpy until the dissolvable sutures under the skin get absorbed by your body which can take 3-4 months. The scar will flatten eventually. 13. Occasionally, about 20% of the time, on the face, the stitches under the skin can spit out ofthe incision to the surface. It can start out looking like a pimple or blemish directly on your incision. Sometimes it can look like a small mini infection so please let us know before you go to another provider for antibiotics. This means that the suture may need to be trimmed or removed when you return for your wound check. This typically occurs a few weeks after surgery if it does occur. 14. To optimize your scar, and best cosmetic result, please avoid direct sunlight to your incision for the first 6 months following surgery. UV ray exposure to your incision may cause the redness to last longer, or to cause permanent darkening of your scar. You can avoid sun by covering your incision with a bandage when outdoors, or wearing SPF 30 to 50 sunscreen (broad spectrum). 15. Sometimes after your sutures are removed, your incision may still be healing for 1 more week. Because of this, avoid make-up and sunscreen until approximately 2 weeks after surgery, or sooner if your skin edges look completely sealed. 16. Flaps may sometimes thicken or become firm several weeks after surgery. This is expected in some types of flaps and in certain locations on the face. This is called hypertrophy. If this occurs, at your wound check, you may need small amounts of medicine injected into your flap to help it softenor thin. This will be determined at your follow-up visit. 17. Flaps and skin surgery in general can lead to mild sensation loss (numbness) in the area of surgery. Massage starting at 8 weeks after surgery can help. 18. Bruising. It is very common to have bruising in swelling in any area of the face, even in areasthat are distant from where we did surgery. This is especially common 24 to 48 hours after surgery when fluid and swelling shifts around in the face. For example, surgery on the forehead, temples, orcheeks often leads to eyelid swelling of both eyes, black eyes, or dark purple bruising. This is expected in most patients and will gradually resolve. However, if you have severe pain not resolvingwith over the counter medicine, please call us. You can use ice packs or a bag of frozen peas for 15-20 minutes 3-4 times daily to areas of swelling on the face; use caution not to put the icy item di rectly on your incision, directly onto your skin as this can damage skin, and avoid prolonged use more than 20 minutes. The best way to use ice packs is over the bandage, or a light cloth/paper towelbetween the ice pack and your skin. You can ice for as many days as needed until swelling has resolved. Antibiotics: If you were given antibiotic prescription, it is important to start them the evening of your surgery date. Most patients do not need antibiotics after surgery. For pain: Most patients of different ages do not require pain medications. If you do feel soreness or pain, start by taking over the counter extra strength acetaminophen (up to 3000 mg in a 24 hour period). Generally, we like you to avoid NSAIDS (non-steroid anti-inflammatory drugs such as ibuprofen) for thefirst 48 hours after surgery as this can increase risk of bleeding. However, if acetaminophen is not helping with pain, you can alternate acetaminophen with iburpofen (ibuprofen 400 mg every 4 hours.) Ice packs over your bandage without getting your bandage wet can also help with pain and swelling,for up to 20 minutes at a time (20 minutes off between icing sessions). Frozen peas work well as ice packs. THIS IS AN EXAMPLE OF A PAIN TREATMENT SCHEDULE: 1) You can take 500 mg acetaminophen one tablet by mouth at 6:00pm. This is over the counter. 2) You can take 400 mg of ibuprofen two hours later, at 8:00 pm, or other NSAID such as naproxen, as long as it does not interact with your other medications and your other doctors have not told you to avoid this. This is over the counter. Check to see how many milligrams (mg) each of your ibuprofen tablets are. Most of the time, ibuprofen comes in 200 mg tablets, so 400 mg would mean taking two of these tablets or capsules. 3) You can take 500 mg of acetaminophen at 10:00 pm. Keep track of your total acetaminophen in a 24hour period as your maximum should be 3000 mg total in a 24 hour period of this medication. 4) At midnight, you can take another 400 mg of ibuprofen. 5) you can continue on this schedule over the next 2 days, making sure to keep tabs of your total acetaminophen. If you are still in pain after trying the above, please call us. When to call your surgeon: ??? Fever of 100.4 degrees Fahrenheit or higher ??? Bleeding not controlled with direct firm pressure to your wound. Bleeding is most common in thefirst 48 hours. ??? Pain that is worsening and not relieved by over the counter medications such as acetaminophen (up to 3000 mg in a 24 hour period) ??? Wound reopening after stitching ??? Pus or bad odor from your wound ??? Worsening redness and warmth around your wound ??? If you think your surgery site is infected, please call us before seeking care or antibiotics from other providers ??? Please call us before seeking care in an emergency room or primary care. ??? If you do call, please leave your full name, phone number, date of , date of surgery, and medical record number if you have it. If after hours, please call the multiple spindle router operator or [phone] and ask for the lead embedded software engineer on-call. If you have any non-urgent questions or concerns, please feel free to call my office or contact me through our patient portal, [facility], at [email or web address] How to contact us during business hours Dermatology at [facility] Road: Mohs scheduling or Mohs follow-up appointments: [phone] documented in this encounter Progress Notes * Rocky Gómez MD - 08/10/2020 10:00 AM EDT Images from the original note were not included. Summary of Procedure(s): Site: left upper cutaneous lip Tumor Type: Basal Cell Carcinoma, nodular/ infiltrative Stages to clear tumor: 1 Repair: advancement flap Images: The patient was asked to call with any issues and is aware that I am available 22/10 should questions arise. Rocky Gómez MD PhD Mohs Micrographic Surgery and Dermatologic Oncology Department of Dermatology Please note that I have reviewed the preoperative checklist from today's nursing visit including relevant social history and medications. I have reviewed the preoperative photos if available and the biopsy report. VITAL SIGNS: There were no vitals taken for this visit. PHYSICAL EXAMINATION: General: patient is awake, alert, oriented and in no acute distress. Skin: Focused examination of surgical site(s) performed which shows a well healed biopsy site with surrounding poorly defined pearly plaque. PHYSICIAN REVIEW OF REPORTS, RECORDS, IMAGES: 1) The accompanying pathology report(s) associated with aforementioned biopsy slide(s) were/was also reviewed. Assessment: Vania Palma is a 49 y.o. female presenting for: 1. Biopsy-proven basal cell carcinoma, nodular/ infiltrative located on the left upper cutaneous lip. Plan: 1. Findings from the biopsy report, today's clinical exam, and other pertinent details were reviewed with patient today. All questions were answered. 2. Discussed treatment options based on the above findings. We recommended Mohs micrographic surgery for treatment of this tumor. Mohs micrographic surgery was indicated due to patient, site and/or tumor characteristics (see operative report for specific indication). 3. We discussed risks, benefits, and alternative treatment options to the Mohs micrographic surgeryprocedure and pertinent information including but not limited to the following: ?? Risks include bleeding, infection, scar, recurrence, incomplete tumor removal or inability to cure with surgery alone if the tumor features are more aggressive than the initial pathology indicates. Occasionally, additional adjuvant treatments may be recommended. Additional risks include large wound, prolonged wound and healing, pain, swelling, bruising, increased appearance of vessels or worsening erythema of baseline skin; more rarely risks include damage to underlying structures such as nerves, cartilage, or muscle which could lead to temporary or permanent loss of sensation or motor function. ?? Benefit is precise tumor removal ?? If reconstruction is performed, it is specific to the patient and defect. ?? Discussed that the shape, size, depth of the wound is often not known until the tumor is clearedand thus the reconstruction options are sometimes not known until after tumor clearance. Occasionally, referrals to other providers may be recommended for reconstruction based on patient preference and need. ?? Reviewed the pros and cons of common reconstructions used for this tumor type, size, and location, and that reconstruction may lead to change in appearance. ?? Natural history of scar was discussed, including that the scar will continue to mature for 1-2 years. Recommended avoidance of special ointments or scar creams, and avoidance of direct sun exposure to the scar for optimal recovery. ?? Reviewed that there are some aspects of cosmesis that are dependent on patient's characteristicssuch as age, skin laxity/texture factors, inflammatory skin diseases such as rosacea, prior surgery/radiation, degree of actinic damage, smoking status, strength of the patient's immune system, diligent wound care, medications, and genetics. ?? Having Mohs surgery may lead to physical limitations for optimal healing, such as restricted physical activity and heavy lifting. 4. The nature of sun-induced photo-aging and skin cancers was discussed. Recommended sun avoidance when possible, especially peak hours of sun 10 am to 2pm, protective clothing such as wide-brimmed hats and long-sleeved clothing, and the use of SPF broad-spectrum sunscreen SPF 50 or higher. 5. Signs and symptoms of skin cancer reviewed. Patient to report any new, changing, or symptomatic lesions and follow up with his or her lead embedded software engineer or other skin provider. 6. Discussed avoiding direct sun exposure to scars for best cosmetic result. Note initiated by SEAN Allred RN has performed the documentation for this encounter in the presence of and acting as a scribe for Dr. Gómez I performed the above scribed service and agree with the accuracy of the documentation in this encounter. Reviewed and signed by: Rocky Gómez Dermatology [facility] * Rocky Gómez MD - 08/10/2020 10:00 AM EDT Mohs micrographic Surgery Operative Report Patient name: Vania Palma : 1970 Date: 08/10/2020 Staff Surgeon: Rocky Gómez MD PhD Nursing/Public Relations Writer(s): Umm Gonzalez RN, Sue Rabago [facility], Perri Headley [facility] Payroll Lead (s): Genesis Mott Pre-operative diagnosis: Basal Cell Carcinoma, nodular/ infiltrative/ micronodular Post-operative diagnosis: same Location/Site: left upper cutaneous lip Procedure: Mohs micrographic surgery Indication(s) for Mohs micrographic surgery: Anatomic location for tissue conservation Stages: 1 Preoperative size of tumor: 2.0 x 1.5 cm Stage I The nature and purpose of the procedure, associated risks, possible consequences and complications,and alternative forms of treatment were explained in detail. We reviewed the possible repairs basedon the clinical appearance of tumor but discussed that often the repair options may not be known until the tumor has jessie extirpated. Informed consent and permission to take photographs were obtained. The site was confirmed with the patient/authorized asset protection representative/referring physician and/or a photograph form time of biopsy. A pre-operative time-out (procedural pause) was conducted with no unresolved discrepancies noted. Local anesthesia was obtained with 1% lidocaine with 1:100,000 epinephrine. The surgical site was prepped and draped in the usual sterile manner. With all visible gross tumor completely excised, the borders of the tumor and 2- 3 mm margins were excised as a complete layer. Hemostasis was achieved by electrocoagulation. The excised tissue was oriented and divided into 2 sections, chromacoded, and submitted for frozen sections. The patient tolerated the procedure well and without complications. On microscopic evaluation of the frozen sections, no residual tumor was identified on the deep or outer border of the sections. The final size of the defect after complete tumor removal was 2.1 x 2.4 cm, extending to level of muscle. Rocky Gómez MD PhD Mohs Micrographic Surgery and Dermatologic Oncology Department of Dermatology [address] [place] [address] Repair Report (Flap) Patient name: Vania T Townsend Staff Surgeon: Rocky Gómez MD PhD Electronic News Gathering Editor(s): same as above assistant professor of sociology: Brent Mora MD, Umm Gonzalez RN Date: 08/10/2020 Clinical Diagnosis: skin and soft tissue defect status post Mohs micrographic surgery Location/Site: Left upper cutaneous lip Indication: repair of wound with quaker of anatomy/function Defect size to be repaired: 2.1 x 2.4 cm Procedure: Advancement flap repair (tissue rearrangement) Final flap size: 8 x 4 cm 2 Procedure Details: Due to the size and location of the defect resulting from the complete removal of the tumor, the postoperative risk of hemorrhage, infection, and the possibility of serious deformity from scarring, and in order to restore proper function and prevent loss of function, the defect was closed with an advancement flap. The nature and purpose of the procedure, associated risks, possible consequences, complications andalternative methods of treatment were explained to the patient in detail. An informed consent was obtained. Local anesthesia was obtained with a solution of 1-% lidocaine with 1:100,000 epinephrine. The surgical site was prepped and draped in the usual sterile manner. Any beveled edges of the defect were repaired with a scalpel blade. The flap was created by making incisions along the left medial cheek, nasal sidewall and left Nati border/oral commissure. The flap and the wound edges were undermined, and hemostasis was obtained with electrocoagulation. The flap was advanced onto the defect. The skin edges were closed using4-0/ 5-0 Monocryl dermal/subcutaneous sutures and 6-0 Prolene skin sutures. Final flap size: 8 x 4 cm2. Estimated blood loss: Minimal. Complications: None. Wound care: Routine. Follow up for suture removal in seven days. The patient was discharged in good condition. Total local anesthesia with 1% lidocaine with 1:100,000 epinephrine used: 20.5cc Total local with 0.25% bupivacaine used: 3cc Preoperative Medications: None Post-operative medications: Keflex 500 mg by mouth twice daily x 7 days Rocky Gómez MD PhD Mohs Micrographic Surgery and Dermatologic Oncology Department of Dermatology [address] [place] [address] Note initiated by Umm Gonzalez RN. Umm Gonzalez RN has performed the documentation for this encounter in the presence of and acting as a scribe for Dr. Gómez I performed the above scribed service and agree with the accuracy of the documentation in this encounter. Reviewed and signed by: Rocky Gómez Dermatology [facility] documented in this encounter Plan of Treatment Not on file documented as of this encounter Visit Diagnoses Diagnosis Basal cell carcinoma of skin of left upper lip Basal cell carcinoma of skin of lip Prophylactic antibiotic Encounter for long-term (current) use of antibiotics documented in this encounter Care Teams Campaign Management Senior Manager Relationship Specialty Start Date End Date Monica Dumont APRN PCP - General Family Medicine 01/21/19 documented as of this encounter
--- OUTSIDE RECORDS SUMMARY | 2024-04-27 19:49 | XMS_ITS | Encounter Summary ---
Author Organization [facility] Address [address] [place] [address] Care Team Providers Care Front Services Agent Name Role Phone Unavailable Primary Care Provider Unavailabl e Encounter Details Date Type Department Care Team (Late st Contact Info) Description 01/13/2002 Results Only [facility] [place] conversion [address] [place] [address] Wesley Daly MD [address] [place], [place] [id number] Social History Tobacco Use Types Packs/Day Years Used Date Smoking Tobacco: Never Assessed Comments Unknown Sex and Gender Information Value Date Recorded Sex Assigned at Not on file Legal Sex Female 18:25 EST Gender Identity Not on file Sexual Orientation Not on file documented as of this encounter Plan of Treatment Not on file documented as of this encounter Procedures Procedure Name Priority Date/Time Associated Diagnosis Comments CYTOPATHOLOGY Routine 01/13/2002 0:00 EDT documented in this encounter Results * CYTOPATHOLOGY (01/13/2002 0:00 EDT) Pathology Report: CYTOPATHOLOGY REPORT Reports generated via electronic interface contain original data; however they are lacking the format of the original report. Caution should be taken when reading/interpreti ng unformatted reports. Name: ? VANIA PALMA ? Accession #: ? [id number] : ? 1970 (Age: 31) ??F ?Collect Date: ? 01/13/2002 Location: ? [facility] ? Receive Date: ? 01/15/2002 Provider: ?WESLEY DALY MD Copy to: ? Specimen/Source: ?ThinPrep Pap Test, Cervix/Endocervix Last Menstrual Period: ? 02/13/01 Menstrual/Pregnanc y Status: ? Post ? SPECIMEN ADEQUACY ? Satisfactory for Evaluation - transformation zone component present GENERAL CATEGORIZATION ? Negative for Intraepithelial Lesion or Malignancy ? Document reviewed and electronically signed by: ? BETTE Austin(ASCP) ? Report Date: ??01/19/2002 11:44 End of Report PAD[facility] BARRAZA 01/13/2002 01/15/2002 us Wesley Daly MD PATHOLOGY ORDERABLES Final Resul t [facility]RA[facility] [address] [place] [address] documented in this encounter Visit Diagnoses Not on filedocumented in this encounter
--- OUTSIDE RECORDS SUMMARY | 2024-04-27 19:49 | XMS_ITS | Encounter Summary ---
Author Organization [facility] Address [address] [place] [address] Care Team Providers Care Felt Cutter Name Role Phone Unknown, Provider Primary Care Provider Unava ilable Encounter Details Date Type Department Care Team (Late st Contact Info) Description 12/19/2015 Results Only [facility] [phone] Keyanna Medel MD [address] [place] [address] Social History Tobacco Use Types Packs/Day Years [...] Procedure Name Priority Date/Time Associated Diagnosis Comments PAP TEST- RESULT ONLY Routine 12/19/2015 0:00 EDT documented in this encounter Results * PAP TEST- RESULT ONLY (12/19/2015 0:00 EDT) Pathology Report: CYTOPATHOLOGY REPORT Reports generated via electronic interface contain original data; however they are lacking the format of the original report. Caution should be taken when reading/interpreti ng unformatted reports. Name: ? REX PALMA ? Accession #: ? [id number] ? : ? 1970 (Age: 45) ??F ?Collect Date: ? 12/19/2015 ? Location: ? [facility] ? Receive Date: ? 12/20/2015 ? Provider: KEYANNA MEDEL MD Copy to: ? Final Report SPECIMEN ADEQUACY ? Satisfactory for Evaluation - transformation zone component present GENERAL CATEGORIZATION ? Negative for Intraepithelial Lesion or Malignancy ?? Last Menstrual Period: 12/05/15 Hormonal/Contracep tive status: None Specimen/Source: ??Pap Test, Cervix/Endocervix, ThinPrep Imaging System with manual evaluation Document reviewed and electronically signed by: ? No Vergara, [place](ASCP) ? Report ??Date: 12/22/2015 07:39 HPV with Pap Test ? Date Ordered: ? 12/22/2015 ? Status: ?? Signed Out ?Date Complete: ? 12/23/2015 ? By: ??System Interface ? Date Reported: ? 12/23/2015 ? Interpretation RESULT: Negative for HPV. No E6 or E7 mRNA is detected from HPV types 16,18,31,33,35, 39,45,51,52,56,58, 59,66, and 68 by client service professional mediated amplification. Comments Document reviewed and electronically signed by: ? System Interface ? Report date: 12/23/2015 By the signature above, the attending physician certifies that he/she has personally conducted a gross and/or microscopic examination of the described specimens and rendered or confirmed the above diagnosis. End of Report [facility] 12/19/2015 12/20/2015 us Keyanna Medel MD PATHOLOGY ORDERABLES Fi nal Result [facility] [address] [place] [address] documented in this encounter Visit Diagnoses Not on filedocumented in this encounter Care Teams Felt Cutter Relationship Specialty Start Date End Date Unknown, Provider, PCP - General 02/20/15 documented as of this encounter
--- OUTSIDE RECORDS SUMMARY | 2024-04-27 19:49 | XMS_ITS | Encounter Summary ---
Author Organization [facility] Address [address] [place] [address] Care Team Providers Care Hr Director Name Role Phone Unavailable Primary Care Provider Unavailabl e Encounter Details Date Type Department Care Team (Late st Contact Info) Description 04/16/2001 Results Only [facility] [place] conversion [address] [place] [address] Ariel Rene [address] [place] [address] [address] [place], [place] [address] Social History Tobacco Use Types Packs/Day Years [...] Priority Date/Time Associated Diagnosis Comments CYTOPATHOLOGY Routine 04/16/2001 0:00 EST documented in this encounter Results * CYTOPATHOLOGY (04/16/2001 0:00 EST) Pathology Report: CYTOPATHOLOGY REPORT Reports generated via electronic interface contain original data; however they are lacking the format of the original report. Caution should be taken when reading/interpreti ng unformatted reports. Name: ? REX HUITRON ? Accession #: ? [id number] : ? 1970 (Age: 30) ??F ?Collect Date: ? 04/16/2001 Location: ? [facility] ? Receive Date: ? 04/18/2001 Provider: ?ARIEL RENE CNM Copy to: ? Specimen/Source: ?ThinPrep Pap Test, Cervix/Endocervix Last Menstrual Period: ? Menstrual/Pregnanc y Status: ? SPECIMEN ADEQUACY ? Unsatisfactory for Evaluation, - insufficient numbers of squamous epithelial cells (less than 10% of expected cellularity) - sample preparation compromised by excessive blood GENERAL CATEGORIZATION ? Specimen processed and examined, but unsatisfactory for evaluation of epithelial abnormality. Recommend repeat Pap test or further follow up, as clincially indicated. ? Document reviewed and electronically signed by: ? BETTE Montenegro(ASCP)(IAC) ? Report Date: ??04/21/2001 17:47 End of Report [facility] BARRA[facility] 04/16/2001 04/18/2001 us Ariel Rene CNDonaldo PATHOLOGY ORDERABLES Final Resul t [facility] BARRAZA [address] [place] [address] documented in this encounter Visit Diagnoses Not on filedocumented in this encounter
--- OUTSIDE RECORDS SUMMARY | 2024-04-27 19:49 | XMS_ITS | Encounter Summary ---
Author Organization Health system Address [address] [place] [address] Care Team Providers Care Gutter Hanger Name Role Phone Unavailable Primary Care Provider Unavailabl e Encounter Details Date Type Department Care Team (Late st Contact Info) Description 11/07/1999 Results Only [facility] - [place] conversion [address] [place] [address] Gabi Pierre, [address] [place] [phone] Social History Tobacco Use Types Packs/Day Years [...] Priority Date/Time Associated Diagnosis Comments CYTOPATHOLOGY Routine 11/07/1999 0:00 EDT documented in this encounter Results * CYTOPATHOLOGY (11/07/1999 0:00 EDT) Pathology Report: CYTOPATHOLOGY REPORT Reports generated via electronic interface contain original data; however they are lacking the format of the original report. Caution should be taken when reading/interpreti ng unformatted reports. Name: ? REX PALMA ? Accession #: ? [id number] : ? 1970 (Age: 28) ??F ?Collect Date: ? 11/07/1999 Location: ? [facility] ? Receive Date: ? 11/09/1999 Provider: ?GABI PIERRE WOMEN'S ACTIVITIES ADVISER Copy to: ? Specimen/Source: ?ThinPrep Pap Test, Cervix/Endocervix Last Menstrual Period: ? 10/29/99 ? SPECIMEN ADEQUACY ? Satisfactory for evaluation. GENERAL CATEGORIZATION ? Within Normal Limits ? Document reviewed and electronically signed by: ? Nasima Houser [facility](ASCP) ? Report Date: ??11/13/1999 13:03 End of Report PADMINI BARRAZA 11/07/1999 11/09/1999 us Gabi Pierre WOMEN'S ACTIVITIES ADVISER PATHOLOGY ORDERABLES Final R esult PAD[facility]I BARRAZA [address] [place] [address] documented in this encounter Visit Diagnoses Not on filedocumented in this encounter
--- OUTSIDE RECORDS SUMMARY | 2024-04-27 19:49 | XMS_ITS | Clinical Summary ---
Author Organization [facility] Address [address] [place] [address] Care Team Providers Care Excavation Laborer Name Role Phone Unknown, Provider MD Primary Care Provider Unava ilable Social History Tobacco Use Types Packs/Day Years Used Date Smoking Tobacco: Never Assessed Comments Unknown Sex and Gender Information Value Date Recorded Sex Assigned at Not on file Legal Sex Female 18:25 EST Gender Identity Not on file Sexual Orientation Not on file Plan of Treatment Health Maintenance Due Date Last Done Comments Hepatitis C Screen 1970 Hepatitis B Vaccine (1 of 3 - 19+ 3-dose series) 12/01 COVID-19 Vaccine (2023- season) [address] [place] [id number] Care Teams Excavation Laborer Relationship Specialty Start Date End Date Unknown, Provider, PCP - General 02/20/15
--- OUTSIDE RECORDS SUMMARY | 2024-04-27 19:49 | XMS_ITS | Encounter Summary ---
Author Organization [facility] Address [address] [place] [address] Care Team Providers Care Barrel Assembler Helper Name Role Phone Unavailable Primary Care Provider Unavailabl e Encounter Details Date Type Department Care Team (Late st Contact Info) Description 09/05/2004 Results Only [facility] [place] conversion [address] [place] [address] Suma Izquierdo MD [address] [place] [address] [place] [address] Social History Tobacco Use Types Packs/Day Years [...] Priority Date/Time Associated Diagnosis Comments CYTOPATHOLOGY Routine 09/05/2004 0:00 EDT documented in this encounter Results * CYTOPATHOLOGY (09/05/2004 0:00 EDT) Pathology Report: CYTOPATHOLOGY REPORT Reports generated via electronic interface contain original data; however they are lacking the format of the original report. Caution should be taken when reading/interpreti ng unformatted reports. Name: ? VANIA PALMA ? Accession #: ? [id number] : ? 1970 (Age: 33) ??F ?Collect Date: ? 09/05/2004 Location: ? [facility] ? Receive Date: ? 09/07/2004 Provider: ?SUMA IZQUIERDO MD Copy to: ? Specimen/Source: ?ThinPrep Pap Test, Cervix/Endocervix Last Menstrual Period: ? 09/30/03 Menstrual/Pregnanc y Status: ? Post Hormonal/Contracep tive Status: ? Condoms Other: ? HPVA - HPV testing requested if ASC-US on the current ThinPrep Pap test. ? SPECIMEN ADEQUACY ? Satisfactory for Evaluation - transformation zone component present GENERAL CATEGORIZATION ? Negative for Intraepithelial Lesion or Malignancy ? Document reviewed and electronically signed by: ? BETTE Hansen(ASCP) ? Report Date: ??09/14/2004 14:37 End of Report PADMINI BARRAZA 09/05/2004 09/07/2004 us Suma Izquierdo MD PATHOLOGY ORDERABLES Final Resu lt Performing Organization Address City/State/[facility] Co de Phone Number PADMINI BARRAZA [address] [place] [address] documented in this encounter Visit Diagnoses Not on filedocumented in this encounter
--- OUTSIDE RECORDS SUMMARY | 2024-04-27 19:49 | XMS_ITS | Encounter Summary ---
Author Organization [facility] Address [address] [place] [address] Care Team Providers Care Roll Threader Operator Name Role Phone Unavailable Primary Care Provider Unavailabl e Encounter Details Date Type Department Care Team (Late st Contact Info) Description 11/15/2006 Results Only [facility] - Map conversion [address] [place] [address] Gabi Pierre, [address] [place] [phone] Social History Tobacco Use Types Packs/Day Years [...] Priority Date/Time Associated Diagnosis Comments CYTOPATHOLOGY Routine 11/15/2006 0:00 EDT documented in this encounter Results * CYTOPATHOLOGY (11/15/2006 0:00 EDT) Pathology Report: CYTOPATHOLOGY REPORT Reports generated via electronic interface contain original data; however they are lacking the format of the original report. Caution should be taken when reading/interpreti ng unformatted reports. Name: ? REX PALMA ? Accession #: ? [id number] : ? 1970 (Age: 35) ??F ?Collect Date: ? 11/15/2006 Location: ? [facility] ? Receive Date: ? 11/18/2006 Provider: ?GABI PIERRE ELECTRICAL SYSTEM SPECIALIST Copy to: ? Specimen/Source: ?ThinPrep Pap Test, Cervix/Endocervix, processed on PodPoster ThinPrep Imaging System, with manual evaluation Last Menstrual Period: ? 10/29/06 Other: ? HPVA - HPV testing requested if ASC-US on the current ThinPrep Pap test. ? SPECIMEN ADEQUACY ? Satisfactory for Evaluation - transformation zone component present GENERAL CATEGORIZATION ? Negative for Intraepithelial Lesion or Malignancy ? Document reviewed and electronically signed by: ? BETTE Dang(ASCP) ? Report Date: ??11/21/2006 07:50 End of Report PADMINI BARRAZA 11/15/2006 11/18/2006 us Gabi Pierre ELECTRICAL SYSTEM SPECIALIST PATHOLOGY ORDERABLES Final R esult PADIMNI BARRAZA [address] [place] [address] documented in this encounter Visit Diagnoses Not on filedocumented in this encounter
--- OUTSIDE RECORDS SUMMARY | 2024-04-27 19:49 | XMS_ITS | Encounter Summary ---
Author Organization [facility] Address [address] [place] [address] Care Team Providers Care Otm Consultant Name Role Phone Unknown, Provider Primary Care Provider Unava ilable Encounter Details Date Type Department Care Team (Late st Contact Info) Description 02/22/2021 Lab Requisition [facility] Pathology & Laboratory Medicine - [facility] [address] [place] [address] Monica Dumont, MANAGER OF PLANNING [address] [place], [place] [address] Encounter for other general examination Social History Tobacco Use Types Packs/Day Years [...] Name Priority Date/Time Associated Diagnosis Comments PAP TEST Today 02/21/2021 13:30 EST Encounter for other general examination HPV DNA DETECTION WITH GENOTYPING, PCR Today 02/21/2021 13:30 EST Encounter for other general examination documented in this encounter Results * HUMAN PAPILLOMAVIRUS (HPV) DETECTION-HIGH RISK TYPES (02/21/2021 13:30 EST) HPV other High Risk types, PCR Negative Negative 03/02/2021 15:34 EST [facility] Papanicolaou smear specimen (specimen) CERVIX UTERI STRUCTURE / Unknown 02/21/2021 13:30 EST 03/01/2021 10:09 EST us Monica L Kevinio MANAGER OF PLANNING MICROBIOLOGY - GENERAL ORDE RABLES Final Result Performing Organization Address City/[facility]/ZIP Co de Phone Number [facility] [address] [place] [address] * PAP TEST (02/21/2021 13:30 EST) Specimens A. Cervix and/or Endocervix , ThinPrep Imaging System with Manual Evaluation 03/02/2021 15:35 [facility] Specimen Adequacy Satisfactory for Evaluation - transformation zone component present 03/02/2021 15:35 [facility] General Categorization Negative for intraepithelial lesion or malignancy 03/02/2021 15:35 [facility] Attestation . 03/02/2021 15:35 [facility] at 1534 Clinical History See below 03/02/20 15:35 [facility] HPV The result for the Human Papillomavirus (HPV) Detection-High Risk Types is Negative. No E6 or E7 mRNA is detected from HPV types 16,18,31,33,35,39 ,45,51,52,56,58,5 9,66, and 68 by refresh technician mediated amplification.Lakisha ting was performed on specimen [id number] and was resulted on 03/02/2021 1526 EST by TIA, LAB INSTRUMENT RESULTS IN 03/02/2021 15:35 [facility] Performing Lab [facility] 03/02/2021 15:35 [facility] Scanned Images 03/02/2021 15:35 [facility] Papanicolaou smear specimen (specimen) CERVIX UTERI STRUCTURE / Unknown 02/21/2021 13:30 EST 02/22/2021 10:43 EST us Monica L Kevinio MANAGER OF PLANNING PATHOLOGY ORDERABLES Final Result Performing Organization Address City/[facility]/ZIP Co de Phone Number [facility] [address] [place] [address] documented in this encounter Visit Diagnoses Diagnosis Encounter for other general examination documented in this encounter Care Teams Otm Consultant Relationship Specialty Start Date End Date Unknown, Provider, PCP - General 02/20/15 documented as of this encounter
--- OUTSIDE RECORDS SUMMARY | 2024-04-27 19:49 | XMS_ITS | Encounter Summary ---
Author Organization [facility] Address [address] [place] [address] Care Team Providers Care Animal Skinner Name Role Phone Unknown, Provider Primary Care Provider Unava ilable Encounter Details Date Type Department Care Team (Late st Contact Info) Description 10/02/2023 Lab Requisition [facility] Pathology & Laboratory Medicine - [facility] [address] [place] [address] John Gregory MD [address] [place] [phone] Encounter for other general examination Social History [...] Procedure Name Priority Date/Time Associated Diagnosis Comments SURGICAL PATHOLOGY Today 10/02/2023 8: 58 EDT Encounter for other general examination documented in this encounter Results * SURGICAL PATHOLOGY (10/02/2023 8:58 EDT) Note to Patient The following pathology results have been interpreted by your pathologist and may be available to you before your health provider has had the opportunity to review them. Please allow time for your provider to receive these results and explore management options, if applicable. 10/08/2023 11:09 EDT [facility] Final Diagnosis A. COLON, ASCENDING, POLYP, POLYPECTOMY: - Tubulovillous adenoma with focal high-grade dysplasia. 10/08/2023 11:09 EDT [facility] Attestation There was significant resident/fellow involvement in the diagnostic evaluation of this case. By the signature below, the attending physician certifies that they have personally conducted a gross and/or microscopic examination of the described specimens and rendered or confirmed the above diagnosis. 10/08/2023 11:09 [facility] at 1109 Clinical History Screening 10/08/2023 11:09 T [facility] Gross Description A. Received in formalin labelled with proper patient identification (initials N, S) and ascending colon polyp is a mendieta-brown polyp, 1.1 x 0.6 x 0.6 cm. Bisected and entirely submitted in A1. ROYCE HUTTON(ASC) 10/04/2023 6:59 10/08/2023 11:09 T [facility] Resident/Markie w: Cari Robison MD PhD 10/08/2023 11:09 [facility] Performing Lab [facility] 10/08/2023 11:09 T [facility] Scanned Images 10/08/2023 11:09 [facility] Tissue ASCENDING COLON STRUCTURE / Unknown 10/02/2023 8:58 EDT 10/02/2023 17:34 EDT us John Gregory MD PATHOLOGY ORDERABLES F inal Result [facility] [address] [place] [address] documented in this encounter Visit Diagnoses Diagnosis Encounter for other general examination documented in this encounter Care Teams Animal Skinner Relationship Specialty Start Date End Date Unknown, Provider, PCP - General 02/20/15 documented as of this encounter
--- OUTSIDE RECORDS SUMMARY | 2024-04-27 19:49 | XMS_ITS | Referral Summary ---
Author Organization [facility] Address [address] [place] [address] Care Team Providers Care Relief Mate Name Role Phone Unknown, Provider MD Primary Care Provider Unava ilable Social History Tobacco Use Types Packs/Day Years Used Date Smoking Tobacco: Never Assessed Comments Unknown Sex and Gender Information Value Date Recorded Sex Assigned at Not on file Legal Sex Female 18:25 EST Gender Identity Not on file Sexual Orientation Not on file Plan of Treatment Not on file Insurance [employer] Care Teams Relief Mate Relationship Specialty Start Date End Date Unknown, Provider, PCP - General 02/20/15
--- OUTSIDE RECORDS SUMMARY | 2024-04-27 19:49 | XMS_ITS | Encounter Summary ---
Author Organization [facility] Address [facility] [place] [address] Care Team Providers Care Bowling Teacher Name Role Phone Monica Dumont APRN Primary Care Provider [phone] Reason for Visit * Reason Comments Dermatitis * Consultation (Routine) - Specialty Diagnoses / Procedures Referred By Juanita tim Referred To Contact Dermatology Diagnoses Skin disorder Monica Dumont APRN [address] [place] [address] [facility] Dermatology [address] [place] [address] Referral ID Status Reason Start Date Expiration Date V isits Requested Visits Authorized [id number] Consult, Test & Treat PCP Updated and/or Approved 01/20/2019 01/20/2020 6 6 Encounter Details Date Type Department Care Team (Late Contact Info) Description 04/20/2019 2:00 PM EST Office Visit Dermatology at [facility] [address] [place] [address] Call, Jg Mota MD [facility] [address] [place] [address] Neoplasm of uncertain behavior of skin; Hand dermatitis Social History Tobacco Use Types Packs/Day Years Used Date Smoking Tobacco: Never Assessed Sex and Gender Information Value Date Recorded Sex Assigned at Not on file Gender Identity Not on file Sexual Orientation Not on file documented as of this encounter Patient Instructions * Patient Instructions* Honey Bishop - 04/20/2019 2:00 PM EST ABOUT YOUR TREATMENTS Your Treatment today: You had a biopsy of your skin (removal of a small piece of tissue for examination under microscope). You had a shave biopsy and do not have sutures. Location of your biopsy: Keep in mind the location of your biopsy site in case further treatment is necessary. Wound care Instructions: 1. Keep wound dry and covered for 24 hours then clean area with soap and water. 2. Pat dry completely 3. Cover with Vaseline and a new bandage daily, do this everyday until the wound is healed Please call [phone] if you have questions or concerns. * Please allow one or two weeks for the biopsy results to return. *Based on your biopsy results we will either call you or send you a letter with the results. *If in two weeks, you have not heard from us, please feel free to call and request your biopsy results. Sensitive Skin Care For Your Hands - Please place thin layer of augmented betamethasone ointment to the hands twice daily for 21 days then take one week off and continue with 21 more days followed by another week off. 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 Please avoid face, groin , or oth er thin-skinned highly penetrable areas (eg, the underarms) - Please place cotton gloves on over a thin layer of the steroid ointment as described above 2-3 times a week at night, retire to bed with the gloves in place and in the morning, remove gloves and rinse off hands. Cotton gloves are very helpful for keeping medicated ointment on hands during the night and also increase the penetration and effectiveness of the steroid. Below is a link to [employer] to buy a pair, although any pharmacy should carry some - Please know that constant hand washing with a harsh soap will worsen the disease and leave hands dry, cracked and peeling. Ways to minimize this is either by wearing waterproof gloves are use alcohol based hand hanger off such as Purell. If you do wash your hands, please pat dry and immediately apply an moisturizer, Vaseline is preferable. - Please discontinue ALL current personal care products that are being applied to the hands apart from either Vaseline, CeraVe cream, CeraVe lotion, CeraVe lite lotion, Vanicream cream. [email or web address] =[email or web address] documented in this encounter Progress Notes * Jg Adame - 04/20/2019 2:00 PM EST Images from the original note were not included. DERMATOLOGY - NEW PATIENT NOTE Date of service: 04/20/2019 Vania Palma : 1970, 48 y.o. Chief Complaint: Chief Complaint Patient presents with ??? Dermatitis HPI: Vania Palma is a 48 y.o. female referred by Monica Dumont with the following concerns: Patient is here today for a rash on the hands that she treats with triamcinolone ointment twice daily for 1 week on, 1 week off. She also occludes with gloves. However, she recently ran out of medication. The rash started 2 years ago on her thumbs and has since spread to the rest of her hands. It is mildly itchy but mainly makes it painful for her to use her hands. She also has a spot on the upper left lip that she would like to have examined. It has been present for 2 years and bleeds with mild pressure. Sometimes she feels a a tingeling sensation in the area. Relevant Skin History: - Okay to leave detailed message with results? Home phone, yes - Skin cancer (including type): None Family History: Melanoma: Unknown Unknown skin cancer: Father Relevant Social History: - 6th grade teacher - - Lives in [place], [place] - Grew up in [place] Meds: Current Outpatient Medications Medication Sig Dispense Refill ??? triamcinolone (KENALOG) 0.1 % Ointment Apply 1 each topically 2 times daily. ??? CIS Free Text Med - Metrogel No current facility-administered medications for this visit. Allergies: Allergies Allergen Reactions ??? Benzoyl Peroxide CIS - Hives ??? Sulfa (Sulfonamide Antibiotics) Review of Systems: - General: Feels well. - Skin: No other skin concerns. Examination: - Constitutional: Patient was alert, well-appearing and in no noticeable distress. - Skin: A focused examination of the face and hands was performed. - A female scribe was present and on standby during my examination. Diagnosis/Skin fndings/Assessment/Plan: # BCC vs microcystic adnexal carcinoma - Left upper cutaneous lip: 1cm pearly plaque with central hemorrhage. - Joint decision to pursue shave biopsy at this time to further evaluate etiology. Procedure: Skin biopsy by shave technique Location: Left upper cutaneous lip Discussed indications for procedure and expectations including risks and benefits. Verbal consent obtained. Skin prep with alcohol. Local anesthesia with 1% xylocaine, 1/100,000 epinephrine. A sampleof the lesion was removed by shave technique to the level of the dermis and submitted to Pathology.Hemostasis obtained (AlCl and/or electrocautery). There were no complications; the pt. tolerated the procedure well. The wound was dressed. Post-procedure expectations, wound care and activity restrictions were reviewed. Follow-up based on pathology results. 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 Repeat the cycle as needed. - Instructed to apply under occlusion with moist white cotton gloves 2-3 times a week at night. - Apply Vaseline after every hand washing and on top of steroid BID. Can use under occlusion of moist cotton gloves on nights not using topical steroid. - Recommended discontinuing all personal care products and lotions apart from Vaseline to affected areas. Discussed and recommended a sensitive skin care regimen. RTC: Pending pathology, otherwise 3 months for hand dermatitis follow up, sooner if needed. Scheduled upon exiting. The following photos were obtained with patient consent: Note initiated by SANIYA Caraballo. I, Honey Bishop, have performed the documentation for this encounter in the presence of and acting as a scribe for Jg Adame MD. I performed the services which were documented by the scribe, and I agree with the accuracy of the documentation in this encounter. Jg Adame MD Reviewed and signed by Jg Adame MD Resident in Dermatology [facility] Patient seen in conjunction with staff ceiling installer: Alaina Matute MD Section of Dermatology [facility] * Terry Matute MD - 04/20/2019 2:00 PM EST I directly supervised Dr. Adame during this office visit. Dr. Adame presented the history and physical exam to me. I then saw and examined this patient with Dr. Adame. We reviewed the history and pertinent details and I confirmed the physical findings. I agree with the details of the history and physical exam as documented in Dr. Adame's note. BCC on cutaneous lip. Met Dr. Martinez. Mohs. Hands are different. Psoriasis vs irritant/eczema or both components. Never a smoker. ? Otezla. TERRY MATUTE MD Staff Physician * Jg Adame - 04/20/2019 2:00 PM EST Notified patient of results. Recommend Mohs surgery. Informed patient that they would be contacted for surgery Cruz Adame MD documented in this encounter Plan of Treatment Not on file documented as of this encounter Procedures Procedure Name Priority Date/Time Associated Diagnosis Comments SPECIMEN TO PATHOLOGY Routine 04/20/2019 4:16 PM EST Neoplasm of uncertain behavior of skin SURGICAL PATHOLOGY REPORT Routine 04/20/2019 3:06 PM EST documented in this encounter Results * Specimen to Pathology (04/20/2019 4:16 PM EST) AP Specimen 04/20/2019 4:16 PM EST 04/20/2019 6:39 PM EST Narrative [facility] - 04/20/2019 6:39 PM EST Specimen requisition ordered. ??Separate Pathology report to follow Resulting Agency Comment Spec In Lab Terry Matute MD PATHOLOGY/CYTOL OGY ORDERABLES [facility] [place] [address] * Surgical Pathology Report (04/20/2019 3:06 PM EST) Final Diagnosis [id number] ? Location: [facility] The signing pathologist has (i) examined the relevant preparation(s) for the specimen(s) and (ii) rendered or confirmed the diagnosis(es). . ?Surgical Pathology DIAGNOSIS Skin, left upper cutaneous lip, shave biopsy: - Basal cell carcinoma, nodular and infiltrative (micronodular) type, present at the peripheral and deep specimen edges Electronically signed by: ??Edgar JETT, Alejandro Mota Verified: ??04/22/2019 ?Dermatopatholo gist Performed at: ??-[facility] Dept. of Pathology, [place], [place] CLINICAL INFORMATION Specimen Submitted: A - Skin, left upper cutaneous lip, shave biopsy (1) Clinical History and Diagnosis: 1 cm pearly plaque with central hemorrhage. BCC versus microcystic adnexal carcinoma. SPECIMEN PROCESSING A - Labeled/Fixative : Left upper cutaneous lip, formalin. Quantity/Size: ??Single, 0.7 x 0.4 x 0.1 cm. Tissue Description: [place]-white skin shave with a 0.2 cm red lesion. Sections/Process ing: Inked, bisected and entirely submitted in 1 cassette labeled A1. ??MLL 04/22/2019 3:08 PM EST [facility] SPECIMEN FROM SKIN / Unknown 04/20/2019 3:06 PM EST 04/20/2019 3:06 PM EST Jg Adame MD PATHOLOGY/CYTOLOGY [place] [address] documented in this encounter Visit Diagnoses Diagnosis Neoplasm of uncertain behavior of skin Hand dermatitis Contact dermatitis and other eczema, due to unspecified cause documented in this encounter Care Teams Bowling Teacher Relationship Specialty Start Date End Date Monica Dumont, VEGETABLE FARM MANAGER PCP - General Family Medicine 01/21/19 documented as of this encounter
--- OUTSIDE RECORDS SUMMARY | 2024-04-27 19:49 | XMS_ITS | Encounter Summary ---
Author Organization [facility] Address [address] [place] [address] Care Team Providers Care Dry Paste Supervisor Name Role Phone Unavailable Primary Care Provider Unavailabl e Encounter Details Date Type Department Care Team (Late st Contact Info) Description 03/30/2003 Results Only [facility] - Map conversion [address] [place] [address] Gabi Pierre, [address] [place] [id number] Social History Tobacco Use Types Packs/Day Years [...] Priority Date/Time Associated Diagnosis Comments CYTOPATHOLOGY Routine 03/30/2003 0:00 EST documented in this encounter Results * CYTOPATHOLOGY (03/30/2003 0:00 EST) Pathology Report: CYTOPATHOLOGY REPORT Reports generated via electronic interface contain original data; however they are lacking the format of the original report. Caution should be taken when reading/interpreti ng unformatted reports. Name: ? VANIA PALMA ? Accession #: ? [id number] : ? 1970 (Age: 32) ??F ?Collect Date: ? 03/30/2003 Location: ? [facility] ? Receive Date: ? 03/31/2003 Provider: ?GABI PIERRE MANAGEMENT LIAISON Copy to: ? Specimen/Source: ?ThinPrep Pap Test, Cervix/Endocervix Last Menstrual Period: ? 03/11/03 ? SPECIMEN ADEQUACY ? Satisfactory for Evaluation - transformation zone component present GENERAL CATEGORIZATION ? Negative for Intraepithelial Lesion or Malignancy ? Document reviewed and electronically signed by: ? Carmen Beth CT(ASCP) ? Report Date: ??04/06/2003 08:01 End of Report [facility] 03/30/2003 03/31/2003 us Gabi Pierre MANAGEMENT LIAISON PATHOLOGY ORDERABLES Final R esult [facility] [address] [place] [address] documented in this encounter Visit Diagnoses Not on filedocumented in this encounter
--- OUTSIDE RECORDS SUMMARY | 2024-04-27 19:49 | XMS_ITS | Encounter Summary ---
Author Organization [facility] Address [address] [place] [address] Care Team Providers Care Senior C Developer Name Role Phone Unavailable Primary Care Provider Unavailabl e Encounter Details Date Type Department Care Team (Late st Contact Info) Description 09/09/2009 Results Only [facility] ([facility]) [address] [place] [address] Gabi Pierre, [facility] [address] [place] [address] [place] [address] Social History Tobacco Use Types Packs/Day Years [...] Priority Date/Time Associated Diagnosis Comments CYTOPATHOLOGY Routine 09/09/2009 0:00 EDT documented in this encounter Results * CYTOPATHOLOGY (09/09/2009 0:00 EDT) Pathology Report: CYTOPATHOLOGY REPORT ? Reports generated via electronic interface contain original data; ? however they are lacking the format of the original report. ? Caution should be taken when reading/interpreti ng unformatted reports. ? Name: ? VANIA PALMA ? Accession #: ? [id number] ? : ? 1970 (Age: 38) ??F ?Collect Date: ? 09/09/2009 ? Location: ? [facility] ? Receive Date: ? 09/12/2009 ? Provider: ?GABI DORIS REWEAVER ? Copy to: ? Specimen/Source: ?Pap Test, Cervix/Endocervix, ThinPrep Imaging System ? with manual evaluation ? Last Menstrual Period: ? 6/2/10 ? Hormonal/Contracep tive Status: ? Condoms ? Other: ? Additional clinical information: paps on file WNL ? HPVA - HPV testing requested if ASC-US on the current ThinPrep Pap test. ? SPECIMEN ADEQUACY ? Satisfactory for Evaluation ? - transformation zone component present ? GENERAL CATEGORIZATION ? Negative for Intraepithelial Lesion or Malignancy ? INTERPRETATION ? Reactive cellular changes associated with inflammation present (includes ?? repair). ? Document reviewed and electronically signed by: ? TO BRANTLEY MD [facility] ? Report Date: ??09/15/2009 17:57 ? End of Report ? [facility] 09/09/2009 09/12/2009 us Gabi Pierre REWEAVER PATHOLOGY ORDERABLES Final R esult [facility] [address] [place] [address] documented in this encounter Visit Diagnoses Not on filedocumented in this encounter
--- OUTSIDE RECORDS SUMMARY | 2024-04-27 19:49 | XMS_ITS | Encounter Summary ---
Author Organization [facility] Address [address] [place] [address] Care Team Providers Care Belt Splicer Name Role Phone Unknown, Provider Primary Care Provider Unava ilable Encounter Details Date Type Department Care Team (Late st Contact Info) Description 10/16/2023 Lab Requisition [facility] Pathology & Laboratory Medicine - [facility] [address] [place] [address] Outr Resulting Lab, Provider Social History Tobacco Use Types Packs/Day Years [...] Procedure Name Priority Date/Time Associated Diagnosis Comments CEA Routine 10/16/2023 12:10 EDT documented in this encounter Results * CEA (10/16/2023 12:10 EDT) CEA 1.2 See Note ng/mL 10/16/2023 22:57 EDT [facility] Comment: % Distribution of CEA (ng/mL): ??0.0 - 2.5 in 98.2% of Nonsmokers and 87.3% of Smokers ??2.6 - 5 in 1.8% of Nonsmokers and 8% of Smokers ??5.1 - 10.1 in 4.7% of Smokers NOTE: Serum CEA concentration should not be interpeted as absolute evidence for the presence or absence of malignant disease. ?? Assayed on Siemens ADVIA Centaur XPT using chemiluminescent technology. ??Values obtained by different assay methods cannot be used interchangeably. Blood VENOUS BLOOD / Unknown 10/16/2023 12:10 EDT 10/16/2023 21:46 EDT us Provider Outr Resulting Lab CHEMISTRY & BLOOD GA S ORDERABLES Final Result [facility] [address] [place] [address] documented in this encounter Visit Diagnoses Not on filedocumented in this encounter Care Teams Belt Splicer Relationship Specialty Start Date End Date Unknown, Provider, PCP - General 02/20/15 documented as of this encounter
--- OUTSIDE RECORDS SUMMARY | 2024-04-27 19:49 | XMS_ITS | Encounter Summary ---
Author Organization [facility] Address [address] [place] [address] Care Team Providers Care Sheet Sorter Name Role Phone Unavailable Primary Care Provider Unavailabl e Encounter Details Date Type Department Care Team (Late st Contact Info) Description 05/14/2001 Results Only [facility] - Maple conversion [address] [place] [address] Ariel Bradley CN [address] [place] [address] [address] [place], [place] [id number] Social History Tobacco Use Types Packs/Day Years [...] Priority Date/Time Associated Diagnosis Comments CYTOPATHOLOGY Routine 05/14/2001 0:00 EST documented in this encounter Results * CYTOPATHOLOGY (05/14/2001 0:00 EST) Pathology Report: CYTOPATHOLOGY REPORT Reports generated via electronic interface contain original data; however they are lacking the format of the original report. Caution should be taken when reading/interpreti ng unformatted reports. Name: ? VANIA PALMA ? Accession #: ? [id number] : ? 1970 (Age: 30) ??F ?Collect Date: ? 05/14/2001 Location: ? [facility] ? Receive Date: ? 05/16/2001 Provider: ?ARIEL WESTLEYADDY CNM Copy to: ? Specimen/Source: ?ThinPrep Pap Test, Cervix/Endocervix Last Menstrual Period: ? 02/13/01 Menstrual/Pregnanc y Status: ? Previous Gynecologic Pathology: ? Yes: unsatisfactory 04/16/01 ? SPECIMEN ADEQUACY ? Satisfactory for Evaluation - transformation zone component present - scant squamous epithelial component secondary to excessive blood GENERAL CATEGORIZATION ? Negative for Intraepithelial Lesion or Malignancy ? Document reviewed and electronically signed by: ? Jonas Ferrari, CT(ASCP) ? Report Date: ??05/19/2001 15:34 End of Report [facility] 05/14/2001 05/16/2001 us Ariel Mckeonsadie CNM PATHOLOGY ORDERABLES Final Resul t [facility] [address] [place] [address] documented in this encounter Visit Diagnoses Not on filedocumented in this encounter
== END 2024-04-27 19:36 | disposition home or self-care (01) ==
LOC: LBN 19:35
PROVIDERS: PCP Family Medicine; Visit Provider Family Medicine
DX: Z23 Encounter for immunization (principal); H02.9 Unspecified disorder of eyelid; Z00.00 Encounter for general adult medical examination without abnormal findings
CPT/HCPCS: 88142; 87624